=== PATIENT | male | born 1975 | race Caucasian/White ===

== ENCOUNTER 2021-01-24 13:50 | Observation (INO) ==
[2021-01-24] MEDS ORDERED: SODIUM CHLORIDE 0.9% 1,000 ML IV STA ×2 (14:20→14:56)
[2021-01-24] MEDS ORDERED: ONDANSETRON 4 MG/2 ML VIAL IV STA (14:20)
[2021-01-24 14:29] LABS: Basophils # 0.1 10*3/uL (0.0-0.2); Basophils % 0.5 % (0.0-0.8); Eosinophils % 0.2 % (0.00-10.9); Hematocrit 41.6 VOL% (42.0-52.0); Hemoglobin 13.9 GM/DL (14.0-18.0); Immature Granulocytes % 1.2 %; Immature Granulocytes Absolute 0.17 #; Lymphocytes # 1.6 10*3/uL (1.4-4.0); Lymphocytes % 10.7 % (21.2-54.2); Mean Corpuscular HGB Conc 33.4 GM/DL (32-36); Mean Corpuscular Volume 92.4 FL (87-102); Mean Platelet Volume 9.5 FL (9.6-12.0); Monocytes % 6.1 % (1.7-12.7); Neutrophils % 81.3 % (38.7-73.9); Platelet Count 211 T/CUMM (130-400); Red Cell Distribution Width 13.6 % (9.3-17.3); White Blood Count 14.8 T/CUMM (4-12)
[2021-01-24 14:45] LABS: Albumin 3.2 G/DL (3.4-5.0); Bilirubin,Total 0.8 MG/DL (0.2-1.0); Calcium 9.5 MG/DL (8.5-10.1); Osmolality,Calculated 256.6 MOS/KG (273-304); Total Protein 8.6 G/DL (5.0-7.5)
[2021-01-24 14:46] LABS: Potassium 3.9 MMOL/L (3.5-5.1)
[2021-01-24 16:15] LABS: Bilirubin,Urine Negative (Negative); Blood, Urine Small mg/dL (Negative); Glucose,Urine (UA) Negative (Negative); Hyaline Casts,Urine 11 /LPF (0-3); Ketones,Urine Negative (Negative); Mucus,Urine Occasional /LPF (Occasional); Nitrite,Urine Negative (Negative); Protein,Urine Negative; Squamous Epithelial Cell,Urine Occasional /HPF (0-10); Urine Appearance CLOUDY (Clear); Urine Color Yellow (Yellow); Urine Specific Gravity 1.008 (1.001-1.035); WBC,Urine 4 /HPF (0-6)
[2021-01-24] MEDS ORDERED: ACETAMINOPHEN 325 MG TABLET PO PRN (16:22)
[2021-01-24] MEDS ORDERED: GLUCAGON 1 MG VIAL IM PRN (16:22)
[2021-01-24] MEDS ORDERED: ONDANSETRON 4 MG/2 ML VIAL IV PRN (16:22)
[2021-01-24] MEDS ORDERED: DEXTROSE 50% 25 GM/50 ML VIAL IV PRN (16:22)
[2021-01-24] MEDS ORDERED: guaiFENesin/DM ER 600-30 MG TABLET PO PRN (16:22)
[2021-01-24] MEDS ORDERED: hydrALAZINE 20 MG/1 ML VIAL IV PRN (16:22)
[2021-01-24] MEDS: SODIUM CHLORIDE 0.9% 1,000 ML IV SCH (16:33)
[2021-01-24] MEDS ORDERED: CIPROFLOXACIN INJ 400 MG in PREMIX 1 EACH IV SCH (18:00)
[2021-01-24] MEDS: metroNIDAZOLE INJ 500 MG in PREMIX 1 EACH IV SCH (18:39)
[2021-01-24] MEDS: ENOXAPARIN 40 MG/0.4 ML SYRINGE SUBCUT SCH (21:45)
[2021-01-25] MEDS: SODIUM CHLORIDE 0.9% 1,000 ML IV SCH ×3 (04:14→17:01)
[2021-01-25] MEDS: metroNIDAZOLE INJ 500 MG in PREMIX 1 EACH IV SCH ×2 (04:15→10:38)
[2021-01-25 06:11] LABS: Calcium 8.2 MG/DL (8.5-10.1); Osmolality,Calculated 259.8 MOS/KG (273-304); Potassium 3.6 MMOL/L (3.5-5.1); Risk Ratio 2.88; Thyroid Stimulating Hormone 5.3 uIU/ml (0.358-3.74); VLDL CHOLESTEROL 10.4 MG/DL
[2021-01-25 07:23] LABS: Basophils # 0.1 10*3/uL (0.0-0.2); Basophils % 0.6 % (0.0-0.8); Eosinophils # 0.1 10*3/uL (0.0-0.87); Eosinophils % 0.9 % (0.00-10.9); Hematocrit 32.9 VOL% (42.0-52.0); Immature Granulocytes % 0.9 %; Immature Granulocytes Absolute 0.08 #; Lymphocytes # 1.5 10*3/uL (1.4-4.0); Lymphocytes % 16.8 % (21.2-54.2); Mean Corpuscular HGB Conc 33.4 GM/DL (32-36); Mean Corpuscular Volume 93.5 FL (87-102); Monocytes % 8.8 % (1.7-12.7); Platelet Count 134 T/CUMM (130-400); Red Blood Count 3.52 MC/CUMM (3.8-5.5); Red Cell Distribution Width 13.8 % (9.3-17.3)
[2021-01-25] MEDS: CIPROFLOXACIN INJ 400 MG in PREMIX 1 EACH IV SCH ×2 (08:43→21:47)
[2021-01-25] MEDS ORDERED: NICOTINE 21 MG/24 HR PATCH TRANSDERM PRN (10:02)
[2021-01-25] MEDS: NORTRIPTYLINE 25 MG CAPSULE PO SCH (21:44)
[2021-01-25] MEDS: ENOXAPARIN 40 MG/0.4 ML SYRINGE SUBCUT SCH (21:44)
[2021-01-26] MEDS: SODIUM CHLORIDE 0.9% 1,000 ML IV SCH ×4 (01:05→22:52)
[2021-01-26 06:13] LABS: Basophils # 0.1 10*3/uL (0.0-0.2); Basophils % 0.8 % (0.0-0.8); Eosinophils # 0.1 10*3/uL (0.0-0.87); Eosinophils % 1.2 % (0.00-10.9); Hemoglobin 10.8 GM/DL (14.0-18.0); Immature Granulocytes % 1.2 %; Immature Granulocytes Absolute 0.08 #; Lymphocytes # 1.9 10*3/uL (1.4-4.0); Lymphocytes % 28.4 % (21.2-54.2); Mean Corpuscular HGB Conc 33.8 GM/DL (32-36); Mean Corpuscular Volume 93.8 FL (87-102); Mean Platelet Volume 9.3 FL (9.6-12.0); Monocytes % 8.6 % (1.7-12.7); Neutrophils % 59.8 % (38.7-73.9); Platelet Count 119 T/CUMM (130-400); Red Blood Count 3.41 MC/CUMM (3.8-5.5); Red Cell Distribution Width 13.6 % (9.3-17.3); White Blood Count 6.5 T/CUMM (4-12)
[2021-01-26 06:32] LABS: Calcium 8.5 MG/DL (8.5-10.1); Osmolality,Calculated 262.4 MOS/KG (273-304); Potassium 4.1 MMOL/L (3.5-5.1)
[2021-01-26 06:36] LABS: Hypochromasia Slight; Microcytosis Slight
[2021-01-26] MEDS: LEVOTHYROXINE 25 MCG TABLET PO SCH (07:49)
[2021-01-26] MEDS: CIPROFLOXACIN INJ 400 MG in PREMIX 1 EACH IV SCH ×2 (09:19→20:53)
[2021-01-26] MEDS: TOLTERODINE LA 2 MG CAPSULE PO SCH (09:21)
[2021-01-26] MEDS: NORTRIPTYLINE 25 MG CAPSULE PO SCH (20:54)
[2021-01-26] MEDS: ENOXAPARIN 40 MG/0.4 ML SYRINGE SUBCUT SCH (20:55)
[2021-01-27] MEDS: SODIUM CHLORIDE 0.9% 1,000 ML IV SCH ×3 (03:09→22:45)
[2021-01-27] MEDS: LEVOTHYROXINE 25 MCG TABLET PO SCH (05:58)
[2021-01-27] MEDS: CIPROFLOXACIN INJ 400 MG in PREMIX 1 EACH IV SCH ×2 (08:16→21:31)
[2021-01-27] MEDS: TOLTERODINE LA 2 MG CAPSULE PO SCH (08:18)
[2021-01-27] MEDS: ENOXAPARIN 40 MG/0.4 ML SYRINGE SUBCUT SCH (21:29)
[2021-01-27] MEDS: NORTRIPTYLINE 25 MG CAPSULE PO SCH (21:29)
[2021-01-28 05:42] LABS: Basophils # 0.1 10*3/uL (0.0-0.2); Basophils % 0.7 % (0.0-0.8); Eosinophils # 0.2 10*3/uL (0.0-0.87); Eosinophils % 2.2 % (0.00-10.9); Hemoglobin 11.2 GM/DL (14.0-18.0); Immature Granulocytes % 1.8 %; Immature Granulocytes Absolute 0.12 #; Lymphocytes # 1.9 10*3/uL (1.4-4.0); Lymphocytes % 28.2 % (21.2-54.2); Mean Corpuscular HGB Conc 32.9 GM/DL (32-36); Mean Corpuscular Volume 94.7 FL (87-102); Mean Platelet Volume 9.1 FL (9.6-12.0); Monocytes % 7.3 % (1.7-12.7); Neutrophils % 59.8 % (38.7-73.9); Platelet Count 135 T/CUMM (130-400); Red Blood Count 3.59 MC/CUMM (3.8-5.5); Red Cell Distribution Width 13.4 % (9.3-17.3); White Blood Count 6.7 T/CUMM (4-12)
[2021-01-28] MEDS: LEVOTHYROXINE 25 MCG TABLET PO SCH (06:02)
[2021-01-28 06:08] LABS: Calcium 8.6 MG/DL (8.5-10.1); Osmolality,Calculated 264.2 MOS/KG (273-304); Potassium 3.8 MMOL/L (3.5-5.1)
[2021-01-28 06:47] LABS: Eosinophils 5 % (0-10); Hypochromasia Slight; Lymphocytes 19 % (20-55); Microcytosis Slight; Platelet Estimate Adequate; Segmented Neutrophils 65 % (50-85); Total Cells Counted 100
[2021-01-28] MEDS: CIPROFLOXACIN INJ 400 MG in PREMIX 1 EACH IV SCH (09:06)
[2021-01-28] MEDS: TOLTERODINE LA 2 MG CAPSULE PO SCH (09:07)
[2021-01-28 16:13] VITALS: BP 117/68
[2021-01-28] MEDS: SODIUM CHLORIDE 0.9% 1,000 ML IV SCH (18:53)
== END 2021-01-28 19:28 | disposition home or self-care (01) ==
LOC: EDBD → EDUNIT# → N.ED 13:50 → N.EDINP 13:50 → N.5E 16:54
PROVIDERS: ADMIT Internal Medicine; ATTEND Internal Medicine

== ENCOUNTER 2021-05-06 15:56 | Inpatient (IN) ==
[2021-05-06 17:14] LABS: Basophils # 0.1 10*3/uL (0.0-0.2); Basophils % 0.8 % (0.0-0.8); Eosinophils # 0.1 10*3/uL (0.0-0.87); Eosinophils % 1.3 % (0.00-10.9); Hematocrit 41.1 VOL% (42.0-52.0); Hemoglobin 13.5 GM/DL (14.0-18.0); Immature Granulocytes % 0.5 %; Immature Granulocytes Absolute 0.05 #; Lymphocytes # 2.6 10*3/uL (1.4-4.0); Lymphocytes % 25.8 % (21.2-54.2); Mean Corpuscular HGB Conc 32.8 GM/DL (32-36); Mean Corpuscular Volume 91.9 FL (87-102); Mean Platelet Volume 8.9 FL (9.6-12.0); Monocytes % 8.7 % (1.7-12.7); Neutrophils % 62.9 % (38.7-73.9); Platelet Count 190 T/CUMM (130-400); Red Blood Count 4.47 MC/CUMM (3.8-5.5); Red Cell Distribution Width 14.1 % (9.3-17.3); White Blood Count 9.9 T/CUMM (4-12)
[2021-05-06 17:19] LABS: Bacteria,Urine Moderate /HPF (Few); Bilirubin,Urine Negative (Negative); Blood, Urine Negative (Negative); Glucose,Urine (UA) Negative (Negative); Ketones,Urine Negative (Negative); Mucus,Urine Many /LPF (Occasional); Nitrite,Urine Positive (Negative); Protein,Urine 100 MG/DL; RBC,Urine 4 /HPF (0-4); Squamous Epithelial Cell,Urine Occasional /HPF (0-10); Urine Appearance CLOUDY (Clear); Urine Color Amber (Yellow); Urine Specific Gravity 1.015 (1.001-1.035)
[2021-05-06 17:37] LABS: Eosinophils 1 % (0-10); Lymphocytes 23 % (20-55); Platelet Estimate Adequate; Segmented Neutrophils 63 % (50-85); Total Cells Counted 100
[2021-05-06 17:42] LABS: Albumin 3.3 G/DL (3.4-5.0); Bilirubin,Total 0.7 MG/DL (0.2-1.0); Calcium 9.4 MG/DL (8.5-10.1); Osmolality,Calculated 262.4 MOS/KG (273-304); Potassium 3.7 MMOL/L (3.5-5.1); Total Protein 8.2 G/DL (6.4-8.2)
[2021-05-06] MEDS ORDERED: VANCOMYCIN INJ 1,250 MG in SODIUM CHLORIDE 0.9% 250 ML IV STA (17:54)
[2021-05-06] MEDS ORDERED: VANCOMYCIN INJ 1,000 MG in SODIUM CHLORIDE 0.9% 250 ML IV STA ×2 (17:59→18:04)
[2021-05-06] MEDS ORDERED: VANCOMYCIN 1,000 MG VIAL ONE (18:00)
[2021-05-06] MEDS ORDERED: ONDANSETRON 4 MG/2 ML VIAL IV PRN (19:27)
[2021-05-06] MEDS ORDERED: DOCUSATE SODIUM 100 MG CAPSULE PO PRN (19:27)
[2021-05-06] MEDS ORDERED: GLUCAGON 1 MG VIAL IM PRN (19:27)
[2021-05-06] MEDS ORDERED: ACETAMINOPHEN 325 MG TABLET PO PRN (19:27)
[2021-05-06] MEDS ORDERED: hydrALAZINE 20 MG/1 ML VIAL IV PRN (19:27)
[2021-05-06] MEDS ORDERED: DEXTROSE 50% 25 GM/50 ML VIAL IV PRN (19:27)
[2021-05-06] MEDS ORDERED: ENOXAPARIN 40 MG/0.4 ML SYRINGE SUBCUT SCH (19:30)
[2021-05-06] MEDS ORDERED: ONDANSETRON 4 MG/2 ML VIAL ONE (19:39)
[2021-05-06] MEDS ORDERED: MORPHINE 4 MG/1 ML VIAL ONE (19:39)
[2021-05-06] MEDS ORDERED: ENOXAPARIN 40 MG/0.4 ML SYRINGE ONE (19:39)
[2021-05-06] MEDS: SODIUM CHLORIDE 0.9% 1,000 ML IV SCH (19:47)
[2021-05-06] MEDS: MORPHINE 4 MG/1 ML VIAL IV PRN (19:47)
[2021-05-06] MEDS: MEROPENEM 500 MG in SODIUM CHLORIDE 0.9% 100 ML IV SCH (22:30)
[2021-05-06] MEDS: NICOTINE 21 MG/24 HR PATCH TRANSDERM PRN (22:33)
[2021-05-06] MEDS: ZALEPLON 5 MG CAPSULE PO PRN (22:33)
[2021-05-07] MEDS: MEROPENEM 500 MG in SODIUM CHLORIDE 0.9% 100 ML IV SCH ×4 (02:05→20:20)
[2021-05-07] MEDS: MORPHINE 4 MG/1 ML VIAL IV PRN ×2 (02:15→08:14)
[2021-05-07 04:35] LABS: Basophils # 0.1 10*3/uL (0.0-0.2); Basophils % 0.5 % (0.0-0.8); Eosinophils # 0.2 10*3/uL (0.0-0.87); Hematocrit 37.2 VOL% (42.0-52.0); Hemoglobin 11.8 GM/DL (14.0-18.0); Immature Granulocytes % 0.7 %; Immature Granulocytes Absolute 0.07 #; Lymphocytes # 3.1 10*3/uL (1.4-4.0); Lymphocytes % 33.1 % (21.2-54.2); Mean Corpuscular HGB Conc 31.7 GM/DL (32-36); Mean Corpuscular Volume 95.1 FL (87-102); Mean Platelet Volume 9.5 FL (9.6-12.0); Monocytes % 10.4 % (1.7-12.7); Neutrophils % 53.3 % (38.7-73.9); Platelet Count 164 T/CUMM (130-400); Red Blood Count 3.91 MC/CUMM (3.8-5.5); Red Cell Distribution Width 14.1 % (9.3-17.3); White Blood Count 9.5 T/CUMM (4-12)
[2021-05-07 04:52] LABS: Albumin 2.8 G/DL (3.4-5.0); Bilirubin,Total 0.6 MG/DL (0.2-1.0); Calcium 8.7 MG/DL (8.5-10.1); Osmolality,Calculated 269.8 MOS/KG (273-304); Potassium 3.8 MMOL/L (3.5-5.1); Risk Ratio 4.06
[2021-05-07] MEDS: SODIUM CHLORIDE 0.9% 1,000 ML IV SCH ×3 (05:12→21:28)
[2021-05-07] MEDS: VANCOMYCIN INJ 1,250 MG in SODIUM CHLORIDE 0.9% 250 ML IV SCH ×2 (06:05→17:52)
[2021-05-07] MEDS: LEVOTHYROXINE 25 MCG TABLET PO SCH (06:05)
[2021-05-07] MEDS: TOLTERODINE LA 2 MG CAPSULE PO SCH (08:14)
[2021-05-07] MEDS: NORTRIPTYLINE 25 MG CAPSULE PO SCH (08:14)
[2021-05-07] MEDS: PANTOPRAZOLE 40 MG TABLET PO SCH (08:15)
[2021-05-07] MEDS ORDERED: BUPIVACAINE MPF 0.25% 30 ML VIAL ONE (08:40)
[2021-05-07] MEDS ORDERED: DEXMEDETOMIDINE 200 MCG/2 ML VIAL ONE (09:06)
[2021-05-07] MEDS ORDERED: propofoL 200 MG/20 ML VIAL IV ONE (09:06)
[2021-05-07] MEDS: CYCLOBENZAPRINE 10 MG TABLET PO SCH ×2 (15:05→20:17)
[2021-05-07] MEDS: ZALEPLON 5 MG CAPSULE PO PRN (20:17)
[2021-05-07] MEDS: NICOTINE 21 MG/24 HR PATCH TRANSDERM PRN (21:40)
[2021-05-08] MEDS: MEROPENEM 500 MG in SODIUM CHLORIDE 0.9% 100 ML IV SCH ×4 (02:33→21:42)
[2021-05-08] MEDS: MORPHINE 4 MG/1 ML VIAL IV PRN (02:33)
[2021-05-08] MEDS: SODIUM CHLORIDE 0.9% 1,000 ML IV SCH ×2 (05:32→16:00)
[2021-05-08] MEDS: LEVOTHYROXINE 25 MCG TABLET PO SCH (05:32)
[2021-05-08] MEDS: VANCOMYCIN INJ 1,250 MG in SODIUM CHLORIDE 0.9% 250 ML IV SCH (05:32)
[2021-05-08] MEDS: PANTOPRAZOLE 40 MG TABLET PO SCH (08:46)
[2021-05-08] MEDS: CYCLOBENZAPRINE 10 MG TABLET PO SCH ×3 (08:46→21:42)
[2021-05-08] MEDS: NORTRIPTYLINE 25 MG CAPSULE PO SCH (08:46)
[2021-05-08] MEDS: TOLTERODINE LA 2 MG CAPSULE PO SCH (08:46)
[2021-05-08 09:23] LABS: Basophils # 0.1 10*3/uL (0.0-0.2); Eosinophils # 0.1 10*3/uL (0.0-0.87); Eosinophils % 2.3 % (0.00-10.9); Hematocrit 34.3 VOL% (42.0-52.0); Hemoglobin 11.2 GM/DL (14.0-18.0); Immature Granulocytes % 0.6 %; Immature Granulocytes Absolute 0.03 #; Lymphocytes # 1.7 10*3/uL (1.4-4.0); Lymphocytes % 34.9 % (21.2-54.2); Mean Corpuscular HGB Conc 32.7 GM/DL (32-36); Mean Corpuscular Volume 93.5 FL (87-102); Mean Platelet Volume 9.2 FL (9.6-12.0); Monocytes % 8.9 % (1.7-12.7); Neutrophils % 52.3 % (38.7-73.9); Platelet Count 110 T/CUMM (130-400); Red Blood Count 3.67 MC/CUMM (3.8-5.5); Red Cell Distribution Width 14.1 % (9.3-17.3); White Blood Count 4.8 T/CUMM (4-12)
[2021-05-08 09:46] LABS: Alanine Aminotransferase 12 U/L (16-61); Albumin 2.5 G/DL (3.4-5.0); Alkaline Phosphatase 104 U/L (45-117); Aspartate Amino Transferase 8 U/L (0-37); Bilirubin,Total < 0.39 MG/DL (0.2-1.0); Blood Urea Nitrogen 5 MG/DL (7-18); Calcium 8.1 MG/DL (8.5-10.1); Carbon Dioxide 25 MMOL/L (21-32); Estimated Glom Filtration Rate 210 ML/MIN; Glucose 101 MG/DL (74-106); Osmolality,Calculated 277.3 MOS/KG (273-304); Potassium 3.4 MMOL/L (3.5-5.1); Sodium 141 MMOL/L (136-145); Total Protein 6.3 G/DL (6.4-8.2)
[2021-05-08 10:55] LABS: Eosinophils 1 % (0-10); Lymphocytes 36 % (20-55); Segmented Neutrophils 55 % (50-85); Total Cells Counted 100
[2021-05-08 10:56] LABS: Platelet Estimate Adequate
[2021-05-08] MEDS: POLYETHYLENE GLYCOL POWDER 17 GM PACK PO SCH (11:24)
[2021-05-08 14:03] LABS: Bilirubin,Urine Negative (Negative); Blood, Urine Small mg/dL (Negative); Glucose,Urine (UA) Negative (Negative); Ketones,Urine Negative (Negative); Nitrite,Urine Negative (Negative); Protein,Urine Negative; Urine Appearance CLOUDY (Clear); Urine Color Yellow (Yellow)
[2021-05-08] MEDS: DOCUSATE SODIUM 100 MG CAPSULE PO SCH (21:42)
[2021-05-09] MEDS: SODIUM CHLORIDE 0.9% 1,000 ML IV SCH ×3 (00:02→20:28)
[2021-05-09] MEDS: MEROPENEM 500 MG in SODIUM CHLORIDE 0.9% 100 ML IV SCH ×4 (01:11→20:23)
[2021-05-09 05:26] LABS: Basophils % 0.7 % (0.0-0.8); Eosinophils # 0.1 10*3/uL (0.0-0.87); Eosinophils % 2.2 % (0.00-10.9); Hematocrit 35.4 VOL% (42.0-52.0); Hemoglobin 11.4 GM/DL (14.0-18.0); Immature Granulocytes % 0.7 %; Immature Granulocytes Absolute 0.04 #; Lymphocytes % 34.2 % (21.2-54.2); Mean Corpuscular HGB Conc 32.2 GM/DL (32-36); Mean Corpuscular Volume 95.2 FL (87-102); Neutrophils % 53.2 % (38.7-73.9); Platelet Count 112 T/CUMM (130-400); Red Blood Count 3.72 MC/CUMM (3.8-5.5); White Blood Count 5.9 T/CUMM (4-12)
[2021-05-09] MEDS: LEVOTHYROXINE 25 MCG TABLET PO SCH (05:41)
[2021-05-09 06:01] LABS: Eosinophils 5 % (0-10); Lymphocytes 23 % (20-55); Platelet Estimate Normal; Segmented Neutrophils 66 % (50-85); Total Cells Counted 100
[2021-05-09] MEDS: DOCUSATE SODIUM 100 MG CAPSULE PO SCH ×2 (09:17→20:23)
[2021-05-09] MEDS: PANTOPRAZOLE 40 MG TABLET PO SCH (09:17)
[2021-05-09] MEDS: NORTRIPTYLINE 25 MG CAPSULE PO SCH (09:17)
[2021-05-09] MEDS: POLYETHYLENE GLYCOL POWDER 17 GM PACK PO SCH (09:17)
[2021-05-09] MEDS: TOLTERODINE LA 2 MG CAPSULE PO SCH (09:17)
[2021-05-09] MEDS: CYCLOBENZAPRINE 10 MG TABLET PO SCH ×3 (09:17→20:23)
[2021-05-09] MEDS: MORPHINE 4 MG/1 ML VIAL IV PRN ×2 (16:01→20:24)
[2021-05-10] MEDS: MENTHOL/ZINC OXIDE OINT 71 GM JAR TOP SCH ×4 (02:17→21:17)
[2021-05-10] MEDS: MEROPENEM 500 MG in SODIUM CHLORIDE 0.9% 100 ML IV SCH ×5 (02:17→21:18)
[2021-05-10] MEDS: LEVOTHYROXINE 25 MCG TABLET PO SCH (06:01)
[2021-05-10] MEDS: SODIUM CHLORIDE 0.9% 1,000 ML IV SCH ×3 (06:21→11:10)
[2021-05-10] MEDS: MORPHINE 4 MG/1 ML VIAL IV PRN ×2 (06:31→21:27)
[2021-05-10 06:37] LABS: Folate 8.27 NG/ML (5.38-24.0); HIV Antigen/Antibody Result Nonreactive (Nonreactive); Vitamin B12 415 PG/ML (211-911)
[2021-05-10] MEDS: TOLTERODINE LA 2 MG CAPSULE PO SCH ×2 (08:32→08:40)
[2021-05-10] MEDS: POLYETHYLENE GLYCOL POWDER 17 GM PACK PO SCH ×2 (08:32→08:40)
[2021-05-10] MEDS: DOCUSATE SODIUM 100 MG CAPSULE PO SCH ×3 (08:33→21:17)
[2021-05-10] MEDS: CYCLOBENZAPRINE 10 MG TABLET PO SCH ×4 (08:33→21:17)
[2021-05-10] MEDS: NORTRIPTYLINE 25 MG CAPSULE PO SCH ×2 (08:34→08:40)
[2021-05-10] MEDS: PANTOPRAZOLE 40 MG TABLET PO SCH ×2 (08:34→09:27)
[2021-05-11] MEDS: MEROPENEM 500 MG in SODIUM CHLORIDE 0.9% 100 ML IV SCH ×4 (03:33→20:08)
[2021-05-11] MEDS: MORPHINE 4 MG/1 ML VIAL IV PRN ×4 (03:38→20:08)
[2021-05-11] MEDS: LEVOTHYROXINE 25 MCG TABLET PO SCH (05:59)
[2021-05-11] MEDS: NORTRIPTYLINE 25 MG CAPSULE PO SCH (08:27)
[2021-05-11] MEDS: DOCUSATE SODIUM 100 MG CAPSULE PO SCH ×2 (08:27→20:08)
[2021-05-11] MEDS: CYCLOBENZAPRINE 10 MG TABLET PO SCH ×3 (08:27→20:08)
[2021-05-11] MEDS: POLYETHYLENE GLYCOL POWDER 17 GM PACK PO SCH (08:27)
[2021-05-11] MEDS: PANTOPRAZOLE 40 MG TABLET PO SCH (08:27)
[2021-05-11] MEDS: TOLTERODINE LA 2 MG CAPSULE PO SCH (08:33)
[2021-05-11] MEDS ORDERED: ERGOCALCIFEROL 50,000 UNIT CAPSULE PO SCH (09:00)
[2021-05-11] MEDS: NICOTINE 21 MG/24 HR PATCH TRANSDERM PRN (12:16)
[2021-05-11] MEDS: MENTHOL/ZINC OXIDE OINT 71 GM JAR TOP SCH ×2 (13:03→22:08)
[2021-05-11] MEDS: ZALEPLON 5 MG CAPSULE PO PRN (22:08)
[2021-05-12] MEDS: MORPHINE 4 MG/1 ML VIAL IV PRN ×2 (04:37→09:56)
[2021-05-12] MEDS: MEROPENEM 500 MG in SODIUM CHLORIDE 0.9% 100 ML IV SCH ×2 (04:37→09:03)
[2021-05-12] MEDS: LEVOTHYROXINE 25 MCG TABLET PO SCH ×2 (04:39→05:33)
[2021-05-12] MEDS: NICOTINE 21 MG/24 HR PATCH TRANSDERM PRN (09:55)
[2021-05-12] MEDS: POLYETHYLENE GLYCOL POWDER 17 GM PACK PO SCH (09:55)
[2021-05-12] MEDS: NORTRIPTYLINE 25 MG CAPSULE PO SCH (09:56)
[2021-05-12] MEDS: DOCUSATE SODIUM 100 MG CAPSULE PO SCH ×2 (09:56→20:49)
[2021-05-12] MEDS: CYCLOBENZAPRINE 10 MG TABLET PO SCH ×3 (09:56→20:49)
[2021-05-12] MEDS: PANTOPRAZOLE 40 MG TABLET PO SCH (09:56)
[2021-05-12] MEDS: MENTHOL/ZINC OXIDE OINT 71 GM JAR TOP SCH ×2 (09:57→20:49)
[2021-05-12] MEDS: TOLTERODINE LA 2 MG CAPSULE PO SCH (10:08)
[2021-05-12] MEDS: ZALEPLON 5 MG CAPSULE PO PRN (20:51)
[2021-05-13] MEDS: LEVOTHYROXINE 25 MCG TABLET PO SCH (06:30)
[2021-05-13] MEDS: PANTOPRAZOLE 40 MG TABLET PO SCH (09:52)
[2021-05-13] MEDS: DOCUSATE SODIUM 100 MG CAPSULE PO SCH (09:52)
[2021-05-13] MEDS: NORTRIPTYLINE 25 MG CAPSULE PO SCH (09:52)
[2021-05-13] MEDS: CYCLOBENZAPRINE 10 MG TABLET PO SCH ×2 (09:52→16:01)
[2021-05-13] MEDS: MENTHOL/ZINC OXIDE OINT 71 GM JAR TOP SCH (09:52)
[2021-05-13] MEDS: POLYETHYLENE GLYCOL POWDER 17 GM PACK PO SCH (09:52)
[2021-05-13] MEDS: TOLTERODINE LA 2 MG CAPSULE PO SCH (09:54)
[2021-05-13] MEDS ORDERED: TUBERCULIN SKIN TEST 0.1 ML SYRINGE INTRADERM ONE (10:00)
[2021-05-13 16:15] VITALS: BP 138/69
[2021-05-17 09:46] LABS: Pyridoxal 5-Phosphate (PLP), P < 4.0
== END 2021-05-13 17:31 | DRG 264 ==
LOC: EDUNIT# → EDBD → N.ED 15:56 → SUATTDRO 19:26 → N.EDINP 19:26 → N.5E 19:59
PROVIDERS: ADMIT Internal Medicine; ATTEND Hospitalist

== ENCOUNTER 2021-05-20 19:23 | Inpatient (IN) ==
[2021-05-20] MEDS ORDERED: ONDANSETRON 4 MG/2 ML VIAL IV ONE (20:25)
[2021-05-20] MEDS ORDERED: MORPHINE 4 MG/1 ML VIAL IV STA (20:25)
[2021-05-20] MEDS ORDERED: ONDANSETRON 4 MG/2 ML VIAL ONE (20:26)
[2021-05-20] MEDS ORDERED: MORPHINE 4 MG/1 ML VIAL ONE (20:27)
[2021-05-20] MEDS ORDERED: LIDOCAINE 2% TOP JELLY 20 ML VIAL INTRAURETH ONE ×2 (22:50→22:57)
[2021-05-20] MEDS ORDERED: LEVOFLOXACIN 500 MG TABLET PO STA (22:50)
[2021-05-20] MEDS ORDERED: LEVOFLOXACIN 500 MG TABLET ONE (22:58)
[2021-05-21] MEDS ORDERED: ACETAMINOPHEN 500 MG TABLET ONE (00:18)
[2021-05-21 01:10] LABS: Bilirubin,Urine Negative (Negative); Blood, Urine Large mg/dL (Negative); Glucose,Urine (UA) Negative (Negative); Ketones,Urine Negative (Negative); Mucus,Urine Occasional /LPF (Occasional); Nitrite,Urine Positive (Negative); Protein,Urine 100 MG/DL; RBC,Urine 2287 /HPF (0-4); Squamous Epithelial Cell,Urine Occasional /HPF (0-10); Urine Appearance CLOUDY (Clear); Urine Color Red (Yellow); Urine Specific Gravity 1.031 (1.001-1.035)
[2021-05-21 01:14] LABS: Basophils % 0.5 % (0.0-0.8); Eosinophils # 0.1 10*3/uL (0.0-0.87); Eosinophils % 0.6 % (0.00-10.9); Hematocrit 46.1 VOL% (42.0-52.0); Hemoglobin 14.5 GM/DL (14.0-18.0); Immature Granulocytes % 0.6 %; Immature Granulocytes Absolute 0.05 #; Lymphocytes # 0.9 10*3/uL (1.4-4.0); Lymphocytes % 10.3 % (21.2-54.2); Mean Corpuscular HGB Conc 31.5 GM/DL (32-36); Mean Corpuscular Volume 95.1 FL (87-102); Mean Platelet Volume 9.4 FL (9.6-12.0); Monocytes % 0.6 % (1.7-12.7); Neutrophils % 87.4 % (38.7-73.9); Platelet Count 172 T/CUMM (130-400); Red Blood Count 4.85 MC/CUMM (3.8-5.5); Red Cell Distribution Width 14.2 % (9.3-17.3); White Blood Count 8.6 T/CUMM (4-12)
[2021-05-21 01:33] LABS: Albumin 3.6 G/DL (3.4-5.0); Bilirubin,Total 0.6 MG/DL (0.2-1.0); Calcium 9.4 MG/DL (8.5-10.1); Osmolality,Calculated 268.1 MOS/KG (273-304); Potassium 4.5 MMOL/L (3.5-5.1); Total Protein 8.8 G/DL (6.4-8.2)
[2021-05-21] MEDS ORDERED: SODIUM CHLORIDE 0.9% 1,000 ML IV STA ×2 (01:40→01:41)
[2021-05-21] MEDS ORDERED: SODIUM PHOSPHATE ENEMA 133 ML BOTTLE RECTAL STA (04:35)
[2021-05-21] MEDS ORDERED: SODIUM CHLORIDE 0.9% 1,000 ML IV SCH (05:00)
[2021-05-21] MEDS: ENOXAPARIN 40 MG/0.4 ML SYRINGE SUBCUT SCH (09:19)
[2021-05-21] MEDS: PANTOPRAZOLE 40 MG TABLET PO SCH (09:19)
[2021-05-21] MEDS: NICOTINE 21 MG/24 HR PATCH TRANSDERM SCH (13:13)
[2021-05-21] MEDS: CYCLOBENZAPRINE 10 MG TABLET PO SCH ×2 (14:50→20:47)
[2021-05-21] MEDS: POLYETHYLENE GLYCOL POWDER 17 GM PACK PO SCH (20:47)
[2021-05-21] MEDS: DOCUSATE SODIUM 100 MG CAPSULE PO SCH (20:48)
[2021-05-21] MEDS ORDERED: LEVOFLOXACIN 750 MG TABLET PO SCH (22:00)
[2021-05-22] MEDS: LEVOTHYROXINE 25 MCG TABLET PO SCH (06:39)
[2021-05-22] MEDS: DOCUSATE SODIUM 100 MG CAPSULE PO SCH ×2 (10:39→21:46)
[2021-05-22] MEDS: PANTOPRAZOLE 40 MG TABLET PO SCH (10:39)
[2021-05-22] MEDS: POLYETHYLENE GLYCOL POWDER 17 GM PACK PO SCH ×2 (10:40→21:46)
[2021-05-22] MEDS: NORTRIPTYLINE 25 MG CAPSULE PO SCH (10:40)
[2021-05-22] MEDS: CYCLOBENZAPRINE 10 MG TABLET PO SCH ×3 (10:40→21:46)
[2021-05-22] MEDS: NICOTINE 21 MG/24 HR PATCH TRANSDERM SCH (10:41)
[2021-05-22] MEDS: ENOXAPARIN 40 MG/0.4 ML SYRINGE SUBCUT SCH (10:44)
[2021-05-22] MEDS: LINACLOTIDE 145 MCG CAPSULE PO SCH (10:45)
[2021-05-22] MEDS: MEROPENEM 500 MG in SODIUM CHLORIDE 0.9% 100 ML IV SCH ×3 (10:51→21:42)
[2021-05-22] MEDS: MORPHINE 4 MG/1 ML VIAL IV PRN (18:46)
[2021-05-23] MEDS: MORPHINE 4 MG/1 ML VIAL IV PRN (00:44)
[2021-05-23] MEDS: MEROPENEM 500 MG in SODIUM CHLORIDE 0.9% 100 ML IV SCH ×4 (02:30→21:52)
[2021-05-23 04:55] LABS: Basophils # 0.1 10*3/uL (0.0-0.2); Basophils % 0.8 % (0.0-0.8); Eosinophils # 0.2 10*3/uL (0.0-0.87); Eosinophils % 2.4 % (0.00-10.9); Hemoglobin 10.7 GM/DL (14.0-18.0); Immature Granulocytes % 1.6 %; Lymphocytes # 1.5 10*3/uL (1.4-4.0); Lymphocytes % 23.4 % (21.2-54.2); Mean Corpuscular HGB Conc 32.4 GM/DL (32-36); Mean Corpuscular Volume 93.5 FL (87-102); Monocytes % 18.1 % (1.7-12.7); Neutrophils % 53.7 % (38.7-73.9); Platelet Count 102 T/CUMM (130-400); Red Blood Count 3.53 MC/CUMM (3.8-5.5); Red Cell Distribution Width 14.3 % (9.3-17.3); White Blood Count 6.2 T/CUMM (4-12)
[2021-05-23 05:11] LABS: Calcium 8.4 MG/DL (8.5-10.1); Osmolality,Calculated 271.7 MOS/KG (273-304); Potassium 3.7 MMOL/L (3.5-5.1)
[2021-05-23 05:31] LABS: Eosinophils 1 % (0-10); Lymphocytes 34 % (20-55); Segmented Neutrophils 58 % (50-85); Total Cells Counted 100
[2021-05-23 05:32] LABS: Hypochromasia 1+; Microcytosis 1+; Platelet Estimate Decreased
[2021-05-23] MEDS: MORPHINE 2 MG/1 ML SYRINGE IV PRN ×4 (05:59→20:02)
[2021-05-23] MEDS: LEVOTHYROXINE 25 MCG TABLET PO SCH (05:59)
[2021-05-23] MEDS: NICOTINE 21 MG/24 HR PATCH TRANSDERM SCH (09:12)
[2021-05-23] MEDS: DOCUSATE SODIUM 100 MG CAPSULE PO SCH ×2 (09:12→20:03)
[2021-05-23] MEDS: PANTOPRAZOLE 40 MG TABLET PO SCH (09:12)
[2021-05-23] MEDS: ENOXAPARIN 40 MG/0.4 ML SYRINGE SUBCUT SCH (09:12)
[2021-05-23] MEDS: NORTRIPTYLINE 25 MG CAPSULE PO SCH (09:13)
[2021-05-23] MEDS: POLYETHYLENE GLYCOL POWDER 17 GM PACK PO SCH ×2 (09:13→20:03)
[2021-05-23] MEDS: LINACLOTIDE 145 MCG CAPSULE PO SCH (09:13)
[2021-05-23] MEDS: CYCLOBENZAPRINE 10 MG TABLET PO SCH ×3 (09:13→20:03)
[2021-05-24] MEDS: MORPHINE 2 MG/1 ML SYRINGE IV PRN ×5 (01:13→21:37)
[2021-05-24] MEDS: MEROPENEM 500 MG in SODIUM CHLORIDE 0.9% 100 ML IV SCH ×4 (03:27→21:19)
[2021-05-24 04:41] LABS: Basophils % 0.7 % (0.0-0.8); Eosinophils # 0.2 10*3/uL (0.0-0.87); Eosinophils % 3.2 % (0.00-10.9); Hematocrit 33.3 VOL% (42.0-52.0); Hemoglobin 10.8 GM/DL (14.0-18.0); Immature Granulocytes % 1.7 %; Immature Granulocytes Absolute 0.09 #; Lymphocytes # 1.4 10*3/uL (1.4-4.0); Mean Corpuscular HGB Conc 32.4 GM/DL (32-36); Mean Platelet Volume 9.4 FL (9.6-12.0); Monocytes % 14.8 % (1.7-12.7); Neutrophils % 52.6 % (38.7-73.9); Platelet Count 119 T/CUMM (130-400); Red Blood Count 3.62 MC/CUMM (3.8-5.5); Red Cell Distribution Width 14.2 % (9.3-17.3); White Blood Count 5.3 T/CUMM (4-12)
[2021-05-24 05:07] LABS: Eosinophils 4 % (0-10); Hypochromasia Slight; Lymphocytes 28 % (20-55); Microcytosis Slight; Platelet Estimate Decreased; Segmented Neutrophils 58 % (50-85); Total Cells Counted 100
[2021-05-24 05:11] LABS: Calcium 8.3 MG/DL (8.5-10.1); Osmolality,Calculated 269.8 MOS/KG (273-304); Potassium 3.8 MMOL/L (3.5-5.1)
[2021-05-24] MEDS: LEVOTHYROXINE 25 MCG TABLET PO SCH (06:30)
[2021-05-24] MEDS: POLYETHYLENE GLYCOL POWDER 17 GM PACK PO SCH ×2 (08:42→21:18)
[2021-05-24] MEDS: NORTRIPTYLINE 25 MG CAPSULE PO SCH (08:42)
[2021-05-24] MEDS: CYCLOBENZAPRINE 10 MG TABLET PO SCH ×3 (08:42→21:18)
[2021-05-24] MEDS: DOCUSATE SODIUM 100 MG CAPSULE PO SCH ×2 (08:42→21:18)
[2021-05-24] MEDS: PANTOPRAZOLE 40 MG TABLET PO SCH (08:42)
[2021-05-24] MEDS: ENOXAPARIN 40 MG/0.4 ML SYRINGE SUBCUT SCH (08:42)
[2021-05-24] MEDS: NICOTINE 21 MG/24 HR PATCH TRANSDERM SCH (08:42)
[2021-05-24] MEDS: LINACLOTIDE 145 MCG CAPSULE PO SCH (08:43)
[2021-05-25] MEDS: MEROPENEM 500 MG in SODIUM CHLORIDE 0.9% 100 ML IV SCH (03:39)
[2021-05-25 05:34] LABS: Basophils % 0.7 % (0.0-0.8); Eosinophils # 0.2 10*3/uL (0.0-0.87); Eosinophils % 2.7 % (0.00-10.9); Hemoglobin 11.4 GM/DL (14.0-18.0); Immature Granulocytes % 1.4 %; Immature Granulocytes Absolute 0.08 #; Lymphocytes # 1.6 10*3/uL (1.4-4.0); Lymphocytes % 27.2 % (21.2-54.2); Mean Corpuscular HGB Conc 32.6 GM/DL (32-36); Mean Corpuscular Volume 91.9 FL (87-102); Mean Platelet Volume 9.2 FL (9.6-12.0); Platelet Count 137 T/CUMM (130-400); Red Blood Count 3.81 MC/CUMM (3.8-5.5); Red Cell Distribution Width 14.3 % (9.3-17.3); White Blood Count 5.9 T/CUMM (4-12)
[2021-05-25 05:59] LABS: Eosinophils 3 % (0-10); Lymphocytes 24 % (20-55); Segmented Neutrophils 59 % (50-85); Total Cells Counted 100
[2021-05-25 06:00] LABS: Hypochromasia 1+; Microcytosis 1+; Platelet Estimate Normal
[2021-05-25 06:06] LABS: Osmolality,Calculated 271.7 MOS/KG (273-304); Potassium 4.2 MMOL/L (3.5-5.1)
[2021-05-25] MEDS: LEVOTHYROXINE 25 MCG TABLET PO SCH (06:37)
[2021-05-25] MEDS: PANTOPRAZOLE 40 MG TABLET PO SCH (09:50)
[2021-05-25] MEDS: CYCLOBENZAPRINE 10 MG TABLET PO SCH ×2 (09:50→14:30)
[2021-05-25] MEDS: ENOXAPARIN 40 MG/0.4 ML SYRINGE SUBCUT SCH (09:50)
[2021-05-25] MEDS: DOCUSATE SODIUM 100 MG CAPSULE PO SCH (09:50)
[2021-05-25] MEDS: NORTRIPTYLINE 25 MG CAPSULE PO SCH (09:50)
[2021-05-25] MEDS: POLYETHYLENE GLYCOL POWDER 17 GM PACK PO SCH (09:51)
[2021-05-25] MEDS: LINACLOTIDE 145 MCG CAPSULE PO SCH (09:51)
[2021-05-25] MEDS: NICOTINE 21 MG/24 HR PATCH TRANSDERM SCH (09:53)
[2021-05-25] MEDS: MORPHINE 2 MG/1 ML SYRINGE IV PRN ×2 (09:54→14:31)
[2021-05-25] MEDS ORDERED: ERTAPENEM 1,000 MG in SODIUM CHLORIDE 0.9% 100 ML IV ONE (11:00)
[2021-05-25 11:29] VITALS: BP 130/82
== END 2021-05-25 15:30 | disposition home health service (06) | DRG 698 ==
LOC: EDBD → EDUNIT# → N.ED 19:23 → N.EDINP 19:23 → N.5E 05-21 04:54
PROVIDERS: ADMIT Hospitalist; ATTEND Hospitalist

== ENCOUNTER 2021-07-20 16:23 | Inpatient (IN) ==
[2021-07-20 18:02] LABS: Basophils # 0.1 10*3/uL (0.0-0.2); Basophils % 0.8 % (0.0-0.8); Eosinophils # 0.2 10*3/uL (0.0-0.87); Eosinophils % 2.1 % (0.00-10.9); Hematocrit 40.3 VOL% (42.0-52.0); Immature Granulocytes % 0.4 %; Immature Granulocytes Absolute 0.03 #; Lymphocytes # 2.2 10*3/uL (1.4-4.0); Lymphocytes % 27.6 % (21.2-54.2); Mean Corpuscular HGB Conc 32.3 GM/DL (32-36); Mean Corpuscular Volume 91.6 FL (87-102); Neutrophils % 60.1 % (38.7-73.9); Platelet Count 171 T/CUMM (130-400); Red Cell Distribution Width 13.9 % (9.3-17.3); White Blood Count 7.8 T/CUMM (4-12)
[2021-07-20 18:25] LABS: Bilirubin,Total 0.8 MG/DL (0.20-1.00); Calcium 8.8 MG/DL (8.5-10.1); Osmolality,Calculated 268.8 MOS/KG (273-304); Potassium 3.7 MMOL/L (3.5-5.1); Total Protein 8.1 G/DL (6.4-8.2)
[2021-07-20 18:36] LABS: Bacteria,Urine Occasional /HPF (Few); Bilirubin,Urine Negative (Negative); Blood, Urine Small mg/dL (Negative); Glucose,Urine (UA) Negative (Negative); Ketones,Urine Negative (Negative); Nitrite,Urine Positive (Negative); Protein,Urine Negative; Squamous Epithelial Cell,Urine Occasional /HPF (0-10); Urine Appearance CLOUDY (Clear); Urine Color Yellow (Yellow); Urine Specific Gravity 1.004 (1.001-1.035)
[2021-07-20 18:38] LABS: Barbiturates Screen,Urine Negative (Negative); Benzodiazepines Screen,Urine Negative (Negative); Cannabinoid Screen,Urine Positive (Negative); Opiate Screen,Urine Negative (Negative); Phencyclidine Screen,Urine Negative (Negative)
[2021-07-20] MEDS ORDERED: LEVOFLOXACIN INJ 750 MG/150 ML PREMIX IV STA (20:23)
[2021-07-20] MEDS ORDERED: GLUCAGON 1 MG VIAL IM PRN (20:31)
[2021-07-20] MEDS ORDERED: traZODone 50 MG TABLET PO PRN (20:31)
[2021-07-20] MEDS ORDERED: ONDANSETRON 4 MG/2 ML VIAL IV PRN (20:31)
[2021-07-20] MEDS ORDERED: DEXTROSE 50% 25 GM/50 ML VIAL IV PRN (20:31)
[2021-07-20] MEDS ORDERED: NICOTINE 21 MG/24 HR PATCH TRANSDERM PRN (20:36)
[2021-07-20] MEDS ORDERED: ACETAMINOPHEN 325 MG TABLET PO PRN (20:36)
[2021-07-20] MEDS: DOCUSATE SODIUM 100 MG CAPSULE PO SCH (21:56)
[2021-07-20] MEDS: CYCLOBENZAPRINE 10 MG TABLET PO SCH (21:56)
[2021-07-20] MEDS: ENOXAPARIN 40 MG/0.4 ML SYRINGE SUBCUT SCH (21:57)
[2021-07-20] MEDS ORDERED: LACTULOSE 20 GM/30 ML UDCUP PO PRN (23:13)
[2021-07-21] MEDS: MORPHINE 2 MG/1 ML SYRINGE IV PRN ×4 (03:16→23:41)
[2021-07-21 06:27] LABS: Basophils # 0.1 10*3/uL (0.0-0.2); Basophils % 0.8 % (0.0-0.8); Eosinophils # 0.2 10*3/uL (0.0-0.87); Eosinophils % 1.7 % (0.00-10.9); Hemoglobin 12.5 GM/DL (14.0-18.0); Immature Granulocytes % 0.6 %; Immature Granulocytes Absolute 0.05 #; Lymphocytes # 2.6 10*3/uL (1.4-4.0); Lymphocytes % 29.2 % (21.2-54.2); Mean Corpuscular HGB Conc 32.1 GM/DL (32-36); Mean Corpuscular Volume 92.6 FL (87-102); Mean Platelet Volume 9.9 FL (9.6-12.0); Monocytes % 10.2 % (1.7-12.7); Neutrophils % 57.5 % (38.7-73.9); Platelet Count 166 T/CUMM (130-400); Red Blood Count 4.21 MC/CUMM (3.8-5.5); Red Cell Distribution Width 13.7 % (9.3-17.3); White Blood Count 8.7 T/CUMM (4-12)
[2021-07-21] MEDS ORDERED: LEVOTHYROXINE 25 MCG TABLET PO SCH (06:30)
[2021-07-21 07:04] LABS: Calcium 9.1 MG/DL (8.5-10.1); Osmolality,Calculated 266.1 MOS/KG (273-304); Potassium 3.4 MMOL/L (3.5-5.1)
[2021-07-21] MEDS ORDERED: POTASSIUM CHLORIDE 20 MEQ TABLET PO PRN (07:18)
[2021-07-21] MEDS: CYCLOBENZAPRINE 10 MG TABLET PO SCH (08:42)
[2021-07-21] MEDS: DOCUSATE SODIUM 100 MG CAPSULE PO SCH (08:42)
[2021-07-21] MEDS ORDERED: LINACLOTIDE 145 MCG CAPSULE PO SCH (09:00)
[2021-07-21] MEDS ORDERED: TOLTERODINE LA 2 MG CAPSULE PO SCH (09:00)
[2021-07-21] MEDS ORDERED: POLYETHYLENE GLYCOL POWDER 17 GM PACK PO SCH (09:00)
[2021-07-21] MEDS: COLLAGENASE OINT 30 GM TUBE TOP SCH (14:40)
[2021-07-21] MEDS: MENTHOL/ZINC OXIDE OINT 71 GM JAR TOP SCH ×2 (14:40→20:29)
[2021-07-21] MEDS ORDERED: LIDOCAINE 2% TOP JELLY 20 ML VIAL INTRAURETH ONE (18:08)
[2021-07-21] MEDS: POLYETHYLENE GLYCOL POWDER 17 GM PACK PO SCH (20:26)
[2021-07-21] MEDS: ENOXAPARIN 40 MG/0.4 ML SYRINGE SUBCUT SCH (20:26)
[2021-07-21] MEDS ORDERED: LEVOFLOXACIN INJ 750 MG/150 ML PREMIX IV SCH (21:00)
[2021-07-21] MEDS ORDERED: NICOTINE 21 MG/24 HR PATCH TRANSDERM ONE (23:22)
[2021-07-22] MEDS: MORPHINE 2 MG/1 ML SYRINGE IV PRN ×5 (04:23→22:05)
[2021-07-22 05:52] LABS: Calcium 8.7 MG/DL (8.5-10.1); Osmolality,Calculated 267.1 MOS/KG (273-304); Potassium 3.8 MMOL/L (3.5-5.1)
[2021-07-22] MEDS: POLYETHYLENE GLYCOL POWDER 17 GM PACK PO SCH ×2 (09:03→20:41)
[2021-07-22] MEDS: COLLAGENASE OINT 30 GM TUBE TOP SCH (09:04)
[2021-07-22] MEDS: MENTHOL/ZINC OXIDE OINT 71 GM JAR TOP SCH ×2 (09:04→22:14)
[2021-07-22] MEDS: cefTRIAXone 1,000 MG in SODIUM CHLORIDE 0.9% 100 ML IV SCH (15:14)
[2021-07-22] MEDS: OXYBUTYNIN XL 15 MG TABLET PO SCH (20:41)
[2021-07-22] MEDS: ENOXAPARIN 40 MG/0.4 ML SYRINGE SUBCUT SCH (20:41)
[2021-07-22] MEDS ORDERED: MELATONIN 3 MG TABLET PO SCH (21:00)
[2021-07-22] MEDS: NICOTINE 21 MG/24 HR PATCH TRANSDERM PRN (22:09)
[2021-07-23] MEDS: MORPHINE 2 MG/1 ML SYRINGE IV PRN ×5 (02:35→20:33)
[2021-07-23] MEDS: POLYETHYLENE GLYCOL POWDER 17 GM PACK PO SCH ×2 (09:34→20:42)
[2021-07-23] MEDS: MENTHOL/ZINC OXIDE OINT 71 GM JAR TOP SCH ×2 (09:34→21:19)
[2021-07-23] MEDS: cefTRIAXone 1,000 MG in SODIUM CHLORIDE 0.9% 100 ML IV SCH (10:20)
[2021-07-23] MEDS: COLLAGENASE OINT 30 GM TUBE TOP SCH (16:05)
[2021-07-23] MEDS: LACTULOSE 20 GM/30 ML UDCUP PO SCH (20:28)
[2021-07-23] MEDS: OXYBUTYNIN XL 15 MG TABLET PO SCH (20:28)
[2021-07-23] MEDS: ENOXAPARIN 40 MG/0.4 ML SYRINGE SUBCUT SCH (20:28)
[2021-07-23] MEDS ORDERED: traZODone 50 MG TABLET PO SCH (21:00)
[2021-07-23] MEDS: NICOTINE 21 MG/24 HR PATCH TRANSDERM PRN (21:17)
[2021-07-24] MEDS: MORPHINE 2 MG/1 ML SYRINGE IV PRN ×5 (00:49→20:47)
[2021-07-24] MEDS: LACTULOSE 20 GM/30 ML UDCUP PO SCH ×2 (10:14→20:51)
[2021-07-24] MEDS: POLYETHYLENE GLYCOL POWDER 17 GM PACK PO SCH ×2 (10:14→20:51)
[2021-07-24] MEDS: cefTRIAXone 1,000 MG in SODIUM CHLORIDE 0.9% 100 ML IV SCH (10:14)
[2021-07-24] MEDS: COLLAGENASE OINT 30 GM TUBE TOP SCH (10:15)
[2021-07-24] MEDS: MENTHOL/ZINC OXIDE OINT 71 GM JAR TOP SCH ×2 (10:15→20:52)
[2021-07-24] MEDS: ENOXAPARIN 40 MG/0.4 ML SYRINGE SUBCUT SCH (20:51)
[2021-07-24] MEDS: ZALEPLON 5 MG CAPSULE PO SCH (20:51)
[2021-07-24] MEDS: OXYBUTYNIN XL 15 MG TABLET PO SCH (20:51)
[2021-07-24] MEDS: NICOTINE 21 MG/24 HR PATCH TRANSDERM PRN (21:24)
[2021-07-25] MEDS: MORPHINE 2 MG/1 ML SYRINGE IV PRN ×6 (01:18→23:31)
[2021-07-25] MEDS: cefTRIAXone 1,000 MG in SODIUM CHLORIDE 0.9% 100 ML IV SCH (09:07)
[2021-07-25] MEDS: LACTULOSE 20 GM/30 ML UDCUP PO SCH ×2 (09:09→21:27)
[2021-07-25] MEDS: POLYETHYLENE GLYCOL POWDER 17 GM PACK PO SCH ×2 (09:11→21:28)
[2021-07-25] MEDS: MENTHOL/ZINC OXIDE OINT 71 GM JAR TOP SCH ×2 (09:50→21:28)
[2021-07-25] MEDS: COLLAGENASE OINT 30 GM TUBE TOP SCH (17:35)
[2021-07-25] MEDS: ZALEPLON 5 MG CAPSULE PO SCH (21:27)
[2021-07-25] MEDS: OXYBUTYNIN XL 15 MG TABLET PO SCH (21:27)
[2021-07-25] MEDS: ENOXAPARIN 40 MG/0.4 ML SYRINGE SUBCUT SCH (21:28)
[2021-07-25] MEDS: NICOTINE 21 MG/24 HR PATCH TRANSDERM PRN (21:37)
[2021-07-26] MEDS: MORPHINE 2 MG/1 ML SYRINGE IV PRN ×3 (03:41→12:57)
[2021-07-26 05:36] LABS: Basophils # 0.1 10*3/uL (0.0-0.2); Basophils % 0.9 % (0.0-0.8); Eosinophils # 0.2 10*3/uL (0.0-0.87); Eosinophils % 2.5 % (0.00-10.9); Hemoglobin 12.4 GM/DL (14.0-18.0); Immature Granulocytes % 0.9 %; Immature Granulocytes Absolute 0.07 #; Lymphocytes # 2.6 10*3/uL (1.4-4.0); Lymphocytes % 33.9 % (21.2-54.2); Mean Corpuscular HGB Conc 31.8 GM/DL (32-36); Mean Corpuscular Volume 93.1 FL (87-102); Mean Platelet Volume 10.1 FL (9.6-12.0); Monocytes % 10.7 % (1.7-12.7); Neutrophils % 51.1 % (38.7-73.9); Platelet Count 200 T/CUMM (130-400); Red Blood Count 4.19 MC/CUMM (3.8-5.5); Red Cell Distribution Width 13.8 % (9.3-17.3); White Blood Count 7.6 T/CUMM (4-12)
[2021-07-26 05:59] LABS: Atypical Lymphocytes Few; Eosinophils 5 % (0-10); Hypochromasia 1+; Lymphocytes 25 % (20-55); Microcytosis 1+; Segmented Neutrophils 57 % (50-85); Total Cells Counted 100
[2021-07-26 06:00] LABS: Platelet Estimate Normal
[2021-07-26 06:19] LABS: Calcium 9.2 MG/DL (8.5-10.1); Osmolality,Calculated 265.2 MOS/KG (273-304); Potassium 4.4 MMOL/L (3.5-5.1)
[2021-07-26] MEDS: LACTULOSE 20 GM/30 ML UDCUP PO SCH (08:54)
[2021-07-26] MEDS: cefTRIAXone 1,000 MG in SODIUM CHLORIDE 0.9% 100 ML IV SCH (08:54)
[2021-07-26] MEDS: POLYETHYLENE GLYCOL POWDER 17 GM PACK PO SCH (08:54)
[2021-07-26] MEDS: MENTHOL/ZINC OXIDE OINT 71 GM JAR TOP SCH (09:01)
[2021-07-26] MEDS: COLLAGENASE OINT 30 GM TUBE TOP SCH (14:59)
[2021-07-26 17:10] VITALS: BP 130/80
== END 2021-07-26 19:52 | disposition home health service (06) | DRG 698 ==
LOC: EDUNIT# → EDBD → N.ED 16:23 → N.EDINP 16:23 → N.5E 22:46 → SUATTDRO 07-23 14:49
PROVIDERS: ADMIT Internal Medicine Geriatric Medicine; ATTEND Internal Medicine

== ENCOUNTER 2021-12-05 13:40 | Inpatient (IN) ==
[2021-12-05 18:14] LABS: Basophils # 0.1 10*3/uL (0.0-0.2); Eosinophils # 0.1 10*3/uL (0.0-0.87); Hematocrit 42.3 VOL% (42.0-52.0); Hemoglobin 13.7 GM/DL (14.0-18.0); Immature Granulocytes % 1.2 %; Immature Granulocytes Absolute 0.13 #; Lymphocytes # 2.6 10*3/uL (1.4-4.0); Lymphocytes % 24.7 % (21.2-54.2); Mean Corpuscular HGB Conc 32.4 GM/DL (32-36); Mean Corpuscular Volume 87.4 FL (87-102); Mean Platelet Volume 8.8 FL (9.6-12.0); Monocytes % 6.1 % (1.7-12.7); Platelet Count 226 T/CUMM (130-400); Red Blood Count 4.84 MC/CUMM (3.8-5.5); Red Cell Distribution Width 14.5 % (9.3-17.3); White Blood Count 10.5 T/CUMM (4-12)
[2021-12-05 18:31] LABS: Albumin 2.7 G/DL (3.4-5.0); Bilirubin,Total 0.9 MG/DL (0.20-1.00); Osmolality,Calculated 258.7 MOS/KG (273-304); Potassium 5.5 MMOL/L (3.5-5.1); Total Protein 8.5 G/DL (6.4-8.2)
[2021-12-05 18:41] LABS: Blood, Urine Small mg/dL (Negative); Glucose,Urine (UA) Negative (Negative); Ketones,Urine Negative (Negative); Mucus,Urine Many /LPF (Occasional); Nitrite,Urine Negative (Negative); Protein,Urine >=500 MG/DL; RBC,Urine 291 /HPF (0-4); Squamous Epithelial Cell,Urine Moderate /HPF (0-10); Urine Appearance CLOUDY (Clear); Urine Color Yellow (Yellow); Urine Specific Gravity 1.016 (1.001-1.035)
[2021-12-05 19:10] LABS: Bilirubin,Urine Moderate mg/dL (Negative)
[2021-12-05] MEDS ORDERED: MEROPENEM 1,000 MG in SODIUM CHLORIDE 0.9% 100 ML IV STA (19:35)
[2021-12-05] MEDS ORDERED: GLUCAGON 1 MG VIAL IM PRN (20:16)
[2021-12-05] MEDS ORDERED: SIMETHICONE CHEW 125 MG TABLET PO PRN (20:16)
[2021-12-05] MEDS ORDERED: tiZANidine 4 MG TABLET PO PRN (20:20)
[2021-12-05] MEDS ORDERED: DEXTROSE 10% 250 ML BAG IV PRN (20:23)
[2021-12-05] MEDS: ENOXAPARIN 40 MG/0.4 ML SYRINGE SUBCUT SCH (22:23)
[2021-12-05] MEDS: SODIUM CHLORIDE 0.9% 1,000 ML IV SCH (22:23)
[2021-12-05] MEDS: QUEtiapine 25 MG TABLET PO SCH (22:24)
[2021-12-05] MEDS: INSULIN REGULAR 100 UNIT/ML SUBCUT SCH (22:24)
[2021-12-05] MEDS: GABAPENTIN 300 MG CAPSULE PO SCH (22:24)
[2021-12-05] MEDS: OXYBUTYNIN XL 15 MG TABLET PO SCH (22:24)
[2021-12-06] MEDS: MEROPENEM 500 MG in SODIUM CHLORIDE 0.9% 100 ML IV SCH ×4 (02:06→22:14)
[2021-12-06 04:06] LABS: Basophils # 0.1 10*3/uL (0.0-0.2); Basophils % 0.8 % (0.0-0.8); Eosinophils # 0.1 10*3/uL (0.0-0.87); Eosinophils % 1.1 % (0.00-10.9); Hematocrit 38.3 VOL% (42.0-52.0); Hemoglobin 12.6 GM/DL (14.0-18.0); Immature Granulocytes % 1.1 %; Immature Granulocytes Absolute 0.11 #; Lymphocytes % 30.8 % (21.2-54.2); Mean Corpuscular HGB Conc 32.9 GM/DL (32-36); Mean Corpuscular Volume 87.6 FL (87-102); Mean Platelet Volume 10.4 FL (9.6-12.0); Monocytes % 7.5 % (1.7-12.7); Neutrophils % 58.7 % (38.7-73.9); Platelet Count 176 T/CUMM (130-400); Red Blood Count 4.37 MC/CUMM (3.8-5.5); Red Cell Distribution Width 14.4 % (9.3-17.3); White Blood Count 9.6 T/CUMM (4-12)
[2021-12-06 04:35] LABS: Eosinophils 1 % (0-10); Hypochromia Slight; Lymphocytes 44 % (20-55); Microcytosis Slight; Platelet Estimate Adequate; Segmented Neutrophils 51 % (50-85); Total Cells Counted 100
[2021-12-06 05:39] LABS: Albumin 2.5 G/DL (3.4-5.0); Bilirubin,Total 0.6 MG/DL (0.20-1.00); Calcium 8.7 MG/DL (8.5-10.1); Osmolality,Calculated 264.4 MOS/KG (273-304); Potassium 4.5 MMOL/L (3.5-5.1); Risk Ratio 3.7; Total Protein 7.6 G/DL (6.4-8.2); VLDL Cholesterol 17.8 MG/DL
[2021-12-06] MEDS: PANTOPRAZOLE 40 MG TABLET PO SCH (09:07)
[2021-12-06] MEDS: POLYETHYLENE GLYCOL POWDER 17 GM PACK PO SCH (09:07)
[2021-12-06] MEDS: ASPIRIN EC 325 MG TABLET PO SCH (09:07)
[2021-12-06] MEDS: GABAPENTIN 300 MG CAPSULE PO SCH ×3 (09:07→22:14)
[2021-12-06] MEDS: INSULIN REGULAR 100 UNIT/ML SUBCUT SCH ×2 (09:09→12:36)
[2021-12-06] MEDS: SODIUM CHLORIDE 0.9% 1,000 ML IV SCH ×2 (09:10→18:04)
[2021-12-06] MEDS: fentaNYL 50 MCG/HR PATCH TRANSDERM SCH (15:01)
[2021-12-06] MEDS: OXYBUTYNIN XL 15 MG TABLET PO SCH (22:13)
[2021-12-06] MEDS: QUEtiapine 25 MG TABLET PO SCH (22:14)
[2021-12-07] MEDS ORDERED: MORPHINE 2 MG/1 ML SYRINGE ONE ×2 (00:49→04:46)
[2021-12-07] MEDS: MORPHINE 2 MG/1 ML SYRINGE IV PRN ×3 (00:53→09:01)
[2021-12-07] MEDS: MEROPENEM 500 MG in SODIUM CHLORIDE 0.9% 100 ML IV SCH ×2 (03:16→08:13)
[2021-12-07 05:37] LABS: Basophils # 0.1 10*3/uL (0.0-0.2); Basophils % 0.9 % (0.0-0.8); Eosinophils # 0.1 10*3/uL (0.0-0.87); Eosinophils % 1.5 % (0.00-10.9); Hematocrit 34.4 VOL% (42.0-52.0); Hemoglobin 11.2 GM/DL (14.0-18.0); Immature Granulocytes % 1.5 %; Lymphocytes # 2.5 10*3/uL (1.4-4.0); Lymphocytes % 37.7 % (21.2-54.2); Mean Corpuscular HGB Conc 32.6 GM/DL (32-36); Mean Corpuscular Volume 88.7 FL (87-102); Mean Platelet Volume 8.8 FL (9.6-12.0); Monocytes % 8.1 % (1.7-12.7); Neutrophils % 50.3 % (38.7-73.9); Platelet Count 149 T/CUMM (130-400); Red Blood Count 3.88 MC/CUMM (3.8-5.5); Red Cell Distribution Width 14.6 % (9.3-17.3); White Blood Count 6.6 T/CUMM (4-12)
[2021-12-07 06:02] LABS: Eosinophils 2 % (0-10); Hypochromia 1+; Lymphocytes 27 % (20-55); Microcytosis 1+; Platelet Estimate Adequate; Segmented Neutrophils 65 % (50-85); Total Cells Counted 100
[2021-12-07 06:08] LABS: Calcium 8.4 MG/DL (8.5-10.1); Free T4 (Free Thyroxine) 1.29 NG/DL (0.76-1.46); Osmolality,Calculated 270.8 MOS/KG (273-304); Potassium 3.9 MMOL/L (3.5-5.1)
[2021-12-07] MEDS: SODIUM CHLORIDE 0.9% 1,000 ML IV SCH ×3 (06:09→21:30)
[2021-12-07] MEDS: POLYETHYLENE GLYCOL POWDER 17 GM PACK PO SCH (08:14)
[2021-12-07] MEDS: PANTOPRAZOLE 40 MG TABLET PO SCH (08:14)
[2021-12-07] MEDS: ASPIRIN EC 325 MG TABLET PO SCH (08:14)
[2021-12-07] MEDS: GABAPENTIN 300 MG CAPSULE PO SCH ×3 (08:14→20:01)
[2021-12-07] MEDS ORDERED: LACTATED RINGERS 1,000 ML IV SCH (11:30)
[2021-12-07] MEDS ORDERED: LIDOCAINE 2% 5 ML VIAL ONE (11:39)
[2021-12-07] MEDS ORDERED: propofoL 200 MG/20 ML VIAL IV ONE (11:39)
[2021-12-07] MEDS ORDERED: ONDANSETRON 4 MG/2 ML VIAL ONE (11:39)
[2021-12-07] MEDS ORDERED: MIDAZOLAM 2 MG/2 ML VIAL ONE (11:39)
[2021-12-07] MEDS ORDERED: fentaNYL 100 MCG/2 ML VIAL ONE (11:39)
[2021-12-07] MEDS ORDERED: ePHEDrine 50 MG/ML VIAL ONE (12:02)
[2021-12-07] MEDS ORDERED: CLINDAMYCIN INJ 900 MG/50 ML PREMIX IV ONE (12:13)
[2021-12-07] MEDS ORDERED: GLYCOPYRROLATE 0.4 MG/2 ML VIAL ONE (12:43)
[2021-12-07] MEDS ORDERED: ESMOLOL 100 MG/10 ML VIAL IV ONE (12:49)
[2021-12-07] MEDS: cefTRIAXone 2,000 MG in SODIUM CHLORIDE 0.9% 100 ML IV SCH (14:36)
[2021-12-07] MEDS: HYDROmorphone 2 MG/1 ML VIAL IV PRN ×3 (16:41→23:48)
[2021-12-07] MEDS: OXYBUTYNIN XL 15 MG TABLET PO SCH (20:01)
[2021-12-07] MEDS: QUEtiapine 25 MG TABLET PO SCH (20:01)
[2021-12-08] MEDS: HYDROmorphone 2 MG/1 ML VIAL IV PRN ×6 (02:04→22:10)
[2021-12-08 06:06] LABS: Basophils # 0.1 10*3/uL (0.0-0.2); Basophils % 0.8 % (0.0-0.8); Eosinophils # 0.1 10*3/uL (0.0-0.87); Eosinophils % 1.2 % (0.00-10.9); Hematocrit 32.1 VOL% (42.0-52.0); Hemoglobin 10.1 GM/DL (14.0-18.0); Immature Granulocytes % 0.8 %; Immature Granulocytes Absolute 0.05 #; Lymphocytes # 1.9 10*3/uL (1.4-4.0); Lymphocytes % 29.4 % (21.2-54.2); Mean Corpuscular HGB Conc 31.5 GM/DL (32-36); Mean Corpuscular Volume 90.9 FL (87-102); Mean Platelet Volume 9.2 FL (9.6-12.0); Monocytes % 10.6 % (1.7-12.7); Neutrophils % 57.2 % (38.7-73.9); Platelet Count 118 T/CUMM (130-400); Red Blood Count 3.53 MC/CUMM (3.8-5.5); Red Cell Distribution Width 14.8 % (9.3-17.3); White Blood Count 6.6 T/CUMM (4-12)
[2021-12-08 06:35] LABS: Calcium 8.3 MG/DL (8.5-10.1); Osmolality,Calculated 273.5 MOS/KG (273-304); Potassium 4.8 MMOL/L (3.5-5.1)
[2021-12-08 06:36] LABS: Eosinophils 2 % (0-10); Lymphocytes 25 % (20-55); Platelet Estimate Normal; Segmented Neutrophils 67 % (50-85); Total Cells Counted 100
[2021-12-08] MEDS: ASPIRIN EC 325 MG TABLET PO SCH (08:05)
[2021-12-08] MEDS: PANTOPRAZOLE 40 MG TABLET PO SCH (08:05)
[2021-12-08] MEDS: GABAPENTIN 300 MG CAPSULE PO SCH ×3 (08:05→20:52)
[2021-12-08] MEDS: POLYETHYLENE GLYCOL POWDER 17 GM PACK PO SCH (08:05)
[2021-12-08] MEDS: ENOXAPARIN 40 MG/0.4 ML SYRINGE SUBCUT SCH ×2 (11:01→19:24)
[2021-12-08] MEDS: cefTRIAXone 2,000 MG in SODIUM CHLORIDE 0.9% 100 ML IV SCH (16:17)
[2021-12-08] MEDS: SODIUM CHLORIDE 0.9% 1,000 ML IV SCH ×2 (20:46→22:21)
[2021-12-08] MEDS: OXYBUTYNIN XL 15 MG TABLET PO SCH (20:51)
[2021-12-08] MEDS: QUEtiapine 25 MG TABLET PO SCH (20:52)
[2021-12-09] MEDS: HYDROmorphone 2 MG/1 ML VIAL IV PRN ×6 (01:13→23:11)
[2021-12-09 06:06] LABS: Basophils # 0.1 10*3/uL (0.0-0.2); Basophils % 0.7 % (0.0-0.8); Eosinophils # 0.1 10*3/uL (0.0-0.87); Eosinophils % 1.1 % (0.00-10.9); Hematocrit 33.5 VOL% (42.0-52.0); Hemoglobin 10.5 GM/DL (14.0-18.0); Immature Granulocytes Absolute 0.08 #; Lymphocytes # 2.1 10*3/uL (1.4-4.0); Lymphocytes % 24.9 % (21.2-54.2); Mean Corpuscular HGB Conc 31.3 GM/DL (32-36); Mean Corpuscular Volume 91.3 FL (87-102); Mean Platelet Volume 9.7 FL (9.6-12.0); Monocytes % 9.5 % (1.7-12.7); Neutrophils % 62.8 % (38.7-73.9); Platelet Count 138 T/CUMM (130-400); Red Blood Count 3.67 MC/CUMM (3.8-5.5); Red Cell Distribution Width 14.8 % (9.3-17.3); White Blood Count 8.4 T/CUMM (4-12)
[2021-12-09 06:35] LABS: Calcium 8.3 MG/DL (8.5-10.1); Potassium 3.9 MMOL/L (3.5-5.1)
[2021-12-09] MEDS: PANTOPRAZOLE 40 MG TABLET PO SCH (10:10)
[2021-12-09] MEDS: GABAPENTIN 300 MG CAPSULE PO SCH ×3 (10:10→21:11)
[2021-12-09] MEDS: fentaNYL 50 MCG/HR PATCH TRANSDERM SCH (10:10)
[2021-12-09] MEDS: ASPIRIN EC 325 MG TABLET PO SCH (10:10)
[2021-12-09] MEDS: ENOXAPARIN 40 MG/0.4 ML SYRINGE SUBCUT SCH (10:11)
[2021-12-09] MEDS: POLYETHYLENE GLYCOL POWDER 17 GM PACK PO SCH (10:11)
[2021-12-09] MEDS: SODIUM CHLORIDE 0.9% 1,000 ML IV SCH ×2 (10:11→17:31)
[2021-12-09] MEDS: cefTRIAXone 2,000 MG in SODIUM CHLORIDE 0.9% 100 ML IV SCH (15:07)
[2021-12-09] MEDS: OXYBUTYNIN XL 15 MG TABLET PO SCH (21:10)
[2021-12-09] MEDS: QUEtiapine 25 MG TABLET PO SCH (21:11)
[2021-12-10] MEDS: HYDROmorphone 2 MG/1 ML VIAL IV PRN ×5 (03:56→20:36)
[2021-12-10] MEDS: SODIUM CHLORIDE 0.9% 1,000 ML IV SCH ×2 (04:03→14:43)
[2021-12-10 05:41] LABS: Basophils % 0.6 % (0.0-0.8); Eosinophils # 0.1 10*3/uL (0.0-0.87); Eosinophils % 1.3 % (0.00-10.9); Hematocrit 31.7 VOL% (42.0-52.0); Hemoglobin 10.1 GM/DL (14.0-18.0); Immature Granulocytes Absolute 0.07 #; Lymphocytes # 2.1 10*3/uL (1.4-4.0); Lymphocytes % 30.4 % (21.2-54.2); Mean Corpuscular HGB Conc 31.9 GM/DL (32-36); Mean Corpuscular Volume 89.8 FL (87-102); Mean Platelet Volume 9.8 FL (9.6-12.0); Monocytes % 11.4 % (1.7-12.7); Neutrophils % 55.3 % (38.7-73.9); Platelet Count 126 T/CUMM (130-400); Red Blood Count 3.53 MC/CUMM (3.8-5.5); Red Cell Distribution Width 14.9 % (9.3-17.3); White Blood Count 6.9 T/CUMM (4-12)
[2021-12-10 05:55] LABS: Calcium 8.4 MG/DL (8.5-10.1); Osmolality,Calculated 269.8 MOS/KG (273-304); Potassium 3.7 MMOL/L (3.5-5.1)
[2021-12-10 06:08] LABS: Lymphocytes 28 % (20-55); Platelet Estimate Normal; Segmented Neutrophils 62 % (50-85); Total Cells Counted 100
[2021-12-10 06:09] LABS: Hypochromia Slight
[2021-12-10] MEDS: PANTOPRAZOLE 40 MG TABLET PO SCH (09:09)
[2021-12-10] MEDS: GABAPENTIN 300 MG CAPSULE PO SCH ×3 (09:09→20:37)
[2021-12-10] MEDS: POLYETHYLENE GLYCOL POWDER 17 GM PACK PO SCH ×2 (09:09→20:38)
[2021-12-10] MEDS: ASPIRIN EC 325 MG TABLET PO SCH (09:10)
[2021-12-10] MEDS: ENOXAPARIN 40 MG/0.4 ML SYRINGE SUBCUT SCH (09:10)
[2021-12-10] MEDS: cefTRIAXone 2,000 MG in SODIUM CHLORIDE 0.9% 100 ML IV SCH (17:06)
[2021-12-10] MEDS: LACTULOSE 20 GM/30 ML UDCUP PO SCH ×2 (17:06→20:43)
[2021-12-10] MEDS: OXYBUTYNIN XL 15 MG TABLET PO SCH (20:37)
[2021-12-10] MEDS: QUEtiapine 25 MG TABLET PO SCH (20:37)
[2021-12-11] MEDS: HYDROmorphone 2 MG/1 ML VIAL IV PRN ×6 (00:01→21:06)
[2021-12-11] MEDS: SODIUM CHLORIDE 0.9% 1,000 ML IV SCH ×3 (00:04→21:08)
[2021-12-11 05:01] LABS: Basophils % 0.6 % (0.0-0.8); Eosinophils # 0.1 10*3/uL (0.0-0.87); Eosinophils % 1.3 % (0.00-10.9); Hematocrit 31.3 VOL% (42.0-52.0); Hemoglobin 9.8 GM/DL (14.0-18.0); Immature Granulocytes % 0.9 %; Immature Granulocytes Absolute 0.06 #; Lymphocytes # 2.1 10*3/uL (1.4-4.0); Lymphocytes % 30.2 % (21.2-54.2); Mean Corpuscular HGB Conc 31.3 GM/DL (32-36); Mean Corpuscular Volume 90.7 FL (87-102); Mean Platelet Volume 9.5 FL (9.6-12.0); Monocytes % 10.2 % (1.7-12.7); Neutrophils % 56.8 % (38.7-73.9); Platelet Count 152 T/CUMM (130-400); Red Blood Count 3.45 MC/CUMM (3.8-5.5); Red Cell Distribution Width 14.7 % (9.3-17.3)
[2021-12-11] MEDS: GABAPENTIN 300 MG CAPSULE PO SCH ×3 (09:14→21:02)
[2021-12-11] MEDS: ASPIRIN EC 325 MG TABLET PO SCH (09:14)
[2021-12-11] MEDS: LACTULOSE 20 GM/30 ML UDCUP PO SCH ×2 (09:14→21:01)
[2021-12-11] MEDS: PANTOPRAZOLE 40 MG TABLET PO SCH (09:14)
[2021-12-11] MEDS: ENOXAPARIN 40 MG/0.4 ML SYRINGE SUBCUT SCH (09:17)
[2021-12-11] MEDS: POLYETHYLENE GLYCOL POWDER 17 GM PACK PO SCH ×2 (09:18→21:02)
[2021-12-11] MEDS: cefTRIAXone 2,000 MG in SODIUM CHLORIDE 0.9% 100 ML IV SCH (15:08)
[2021-12-11] MEDS: MINERAL OIL ENEMA 133 ML BOTTLE RECTAL PRN (17:06)
[2021-12-11] MEDS: QUEtiapine 25 MG TABLET PO SCH (21:02)
[2021-12-11] MEDS: OXYBUTYNIN XL 15 MG TABLET PO SCH (21:02)
[2021-12-12] MEDS: HYDROmorphone 2 MG/1 ML VIAL IV PRN ×5 (00:43→20:35)
[2021-12-12] MEDS ORDERED: ONDANSETRON 4 MG/2 ML VIAL IV PRN (01:55)
[2021-12-12 03:05] LABS: Basophils # 0.1 10*3/uL (0.0-0.2); Basophils % 0.8 % (0.0-0.8); Eosinophils # 0.1 10*3/uL (0.0-0.87); Eosinophils % 1.9 % (0.00-10.9); Hematocrit 30.1 VOL% (42.0-52.0); Hemoglobin 9.7 GM/DL (14.0-18.0); Immature Granulocytes % 0.8 %; Immature Granulocytes Absolute 0.05 #; Lymphocytes % 31.1 % (21.2-54.2); Mean Corpuscular HGB Conc 32.2 GM/DL (32-36); Mean Corpuscular Volume 89.3 FL (87-102); Mean Platelet Volume 9.7 FL (9.6-12.0); Monocytes % 9.2 % (1.7-12.7); Neutrophils % 56.2 % (38.7-73.9); Platelet Count 144 T/CUMM (130-400); Red Blood Count 3.37 MC/CUMM (3.8-5.5); Red Cell Distribution Width 14.6 % (9.3-17.3); White Blood Count 6.3 T/CUMM (4-12)
[2021-12-12 03:34] LABS: Hypochromia 1+; Microcytosis 1+
[2021-12-12 03:35] LABS: Platelet Estimate Adequate; Target Cells Slight
[2021-12-12 03:38] LABS: Calcium 8.1 MG/DL (8.5-10.1); Osmolality,Calculated 271.8 MOS/KG (273-304); Potassium 3.9 MMOL/L (3.5-5.1)
[2021-12-12] MEDS: SODIUM CHLORIDE 0.9% 1,000 ML IV SCH ×2 (06:01→16:13)
[2021-12-12] MEDS: fentaNYL 50 MCG/HR PATCH TRANSDERM SCH (08:25)
[2021-12-12] MEDS: LACTULOSE 20 GM/30 ML UDCUP PO SCH ×2 (09:09→20:37)
[2021-12-12] MEDS: GABAPENTIN 300 MG CAPSULE PO SCH ×3 (09:09→20:37)
[2021-12-12] MEDS: PANTOPRAZOLE 40 MG TABLET PO SCH (09:09)
[2021-12-12] MEDS: POLYETHYLENE GLYCOL POWDER 17 GM PACK PO SCH ×2 (09:09→20:36)
[2021-12-12] MEDS: ENOXAPARIN 40 MG/0.4 ML SYRINGE SUBCUT SCH (09:10)
[2021-12-12] MEDS: ASPIRIN EC 325 MG TABLET PO SCH (09:10)
[2021-12-12] MEDS ORDERED: MAGNESIUM SULF RIDER 2 GM/50 ML PREMIX IV PRN (11:13)
[2021-12-12] MEDS ORDERED: MAGNESIUM SULF RIDER 4 GM/100 ML PREMIX IV PRN (11:13)
[2021-12-12] MEDS: cefTRIAXone 2,000 MG in SODIUM CHLORIDE 0.9% 100 ML IV SCH (16:13)
[2021-12-12] MEDS: METHYLNALTREXONE 12 MG/0.6 ML VIAL SUBCUT SCH (17:01)
[2021-12-12] MEDS: MINERAL OIL ENEMA 133 ML BOTTLE RECTAL PRN (18:09)
[2021-12-12] MEDS: QUEtiapine 25 MG TABLET PO SCH (20:37)
[2021-12-12] MEDS: OXYBUTYNIN XL 15 MG TABLET PO SCH (20:38)
[2021-12-13] MEDS: HYDROmorphone 2 MG/1 ML VIAL IV PRN ×5 (00:33→22:31)
[2021-12-13] MEDS: SODIUM CHLORIDE 0.9% 1,000 ML IV SCH ×2 (03:55→18:38)
[2021-12-13] MEDS ORDERED: SODIUM CHLORIDE 0.9% 500 ML IV ONE (06:26)
[2021-12-13 06:31] LABS: Basophils # 0.1 10*3/uL (0.0-0.2); Basophils % 0.9 % (0.0-0.8); Eosinophils # 0.1 10*3/uL (0.0-0.87); Eosinophils % 2.3 % (0.00-10.9); Hematocrit 27.8 VOL% (42.0-52.0); Hemoglobin 8.8 GM/DL (14.0-18.0); Immature Granulocytes % 0.5 %; Immature Granulocytes Absolute 0.03 #; Lymphocytes % 36.3 % (21.2-54.2); Mean Corpuscular HGB Conc 31.7 GM/DL (32-36); Mean Corpuscular Volume 91.4 FL (87-102); Mean Platelet Volume 10.4 FL (9.6-12.0); Platelet Count 163 T/CUMM (130-400); Red Blood Count 3.04 MC/CUMM (3.8-5.5); Red Cell Distribution Width 14.7 % (9.3-17.3); White Blood Count 5.6 T/CUMM (4-12)
[2021-12-13 06:47] LABS: Calcium 8.7 MG/DL (8.5-10.1); Osmolality,Calculated 269.8 MOS/KG (273-304); Potassium 3.9 MMOL/L (3.5-5.1)
[2021-12-13 06:51] LABS: Hypochromia 1+; Microcytosis 1+; Platelet Estimate Adequate
[2021-12-13] MEDS: METHYLNALTREXONE 12 MG/0.6 ML VIAL SUBCUT SCH (09:57)
[2021-12-13] MEDS: ENOXAPARIN 40 MG/0.4 ML SYRINGE SUBCUT SCH (09:58)
[2021-12-13] MEDS: POLYETHYLENE GLYCOL POWDER 17 GM PACK PO SCH ×2 (09:58→20:46)
[2021-12-13] MEDS: LACTULOSE 20 GM/30 ML UDCUP PO SCH ×2 (09:58→20:46)
[2021-12-13] MEDS: ASPIRIN EC 325 MG TABLET PO SCH (09:58)
[2021-12-13] MEDS: PANTOPRAZOLE 40 MG TABLET PO SCH (09:58)
[2021-12-13] MEDS: GABAPENTIN 300 MG CAPSULE PO SCH ×3 (09:58→20:46)
[2021-12-13] MEDS: OXYBUTYNIN XL 15 MG TABLET PO SCH (20:46)
[2021-12-13] MEDS: QUEtiapine 25 MG TABLET PO SCH (20:46)
[2021-12-13] MEDS: NICOTINE 14 MG/24 HR PATCH TRANSDERM PRN (22:37)
[2021-12-14] MEDS: HYDROmorphone 2 MG/1 ML VIAL IV PRN (02:41)
[2021-12-14 04:22] LABS: Basophils # 0.1 10*3/uL (0.0-0.2); Eosinophils # 0.2 10*3/uL (0.0-0.87); Eosinophils % 2.4 % (0.00-10.9); Hematocrit 31.3 VOL% (42.0-52.0); Hemoglobin 9.7 GM/DL (14.0-18.0); Immature Granulocytes % 1.1 %; Immature Granulocytes Absolute 0.07 #; Lymphocytes % 32.6 % (21.2-54.2); Mean Corpuscular Volume 90.7 FL (87-102); Mean Platelet Volume 9.4 FL (9.6-12.0); Monocytes % 11.4 % (1.7-12.7); Neutrophils % 51.5 % (38.7-73.9); Platelet Count 156 T/CUMM (130-400); Red Blood Count 3.45 MC/CUMM (3.8-5.5); Red Cell Distribution Width 14.6 % (9.3-17.3); White Blood Count 6.1 T/CUMM (4-12)
[2021-12-14 04:38] LABS: Calcium 8.2 MG/DL (8.5-10.1); Osmolality,Calculated 273.5 MOS/KG (273-304); Potassium 4.2 MMOL/L (3.5-5.1)
[2021-12-14 05:03] LABS: Eosinophils 2 % (0-10); Hypochromia 1+; Lymphocytes 35 % (20-55); Microcytosis 1+; Platelet Estimate Adequate; Segmented Neutrophils 53 % (50-85); Total Cells Counted 100
[2021-12-14] MEDS: SODIUM CHLORIDE 0.9% 1,000 ML IV SCH (05:17)
[2021-12-14] MEDS: ASPIRIN EC 325 MG TABLET PO SCH (09:45)
[2021-12-14] MEDS: PANTOPRAZOLE 40 MG TABLET PO SCH (09:46)
[2021-12-14] MEDS: GABAPENTIN 300 MG CAPSULE PO SCH ×3 (09:46→20:52)
[2021-12-14] MEDS: oxyCODONE/ACETAMINOPHEN 5-325 MG TABLET PO PRN ×3 (09:46→22:07)
[2021-12-14] MEDS: POLYETHYLENE GLYCOL POWDER 17 GM PACK PO SCH ×2 (09:47→20:52)
[2021-12-14] MEDS: ENOXAPARIN 40 MG/0.4 ML SYRINGE SUBCUT SCH (09:47)
[2021-12-14] MEDS: LACTULOSE 20 GM/30 ML UDCUP PO SCH ×2 (09:47→20:52)
[2021-12-14] MEDS: METHYLNALTREXONE 12 MG/0.6 ML VIAL SUBCUT SCH (09:47)
[2021-12-14] MEDS ORDERED: SKIN HEALING OINT (AQUAPHOR) 50 GM TUBE TOP PRN (15:11)
[2021-12-14] MEDS: OXYBUTYNIN XL 15 MG TABLET PO SCH (20:52)
[2021-12-14] MEDS: QUEtiapine 25 MG TABLET PO SCH (20:52)
[2021-12-15] MEDS: METHYLNALTREXONE 12 MG/0.6 ML VIAL SUBCUT SCH (09:56)
[2021-12-15] MEDS: LACTULOSE 20 GM/30 ML UDCUP PO SCH (09:57)
[2021-12-15] MEDS: ASPIRIN EC 325 MG TABLET PO SCH (09:57)
[2021-12-15] MEDS: PANTOPRAZOLE 40 MG TABLET PO SCH (09:57)
[2021-12-15] MEDS: GABAPENTIN 300 MG CAPSULE PO SCH (09:57)
[2021-12-15] MEDS: ENOXAPARIN 40 MG/0.4 ML SYRINGE SUBCUT SCH (09:57)
[2021-12-15] MEDS: POLYETHYLENE GLYCOL POWDER 17 GM PACK PO SCH (10:02)
[2021-12-15] MEDS: oxyCODONE/ACETAMINOPHEN 5-325 MG TABLET PO PRN (10:02)
[2021-12-15] MEDS: NICOTINE 14 MG/24 HR PATCH TRANSDERM PRN (10:04)
[2021-12-15] MEDS: fentaNYL 50 MCG/HR PATCH TRANSDERM SCH (10:06)
[2021-12-15 12:21] VITALS: BP 128/68
== END 2021-12-15 12:59 | disposition home health service (06) | DRG 981 ==
LOC: EDBD → EDUNIT# → N.ED 13:40 → N.EDINP 20:16 → SUATTDRO 20:16 → N.5E 12-06 15:59
PROVIDERS: ADMIT Internal Medicine; ATTEND Internal Medicine

== ENCOUNTER 2022-06-28 06:08 | Inpatient (IN) ==
[~2022-06-28 06:08] MED LIST: CLINDAMYCIN INJ 900 MG/50 ML PREMIX IV ONE
[2022-06-28] MEDS ORDERED: ACETAMINOPHEN 500 MG TABLET PO ONE (06:49)
[2022-06-28] MEDS ORDERED: FAMOTIDINE 20 MG TABLET PO ONE (06:49)
[2022-06-28] MEDS ORDERED: DIAZEPAM 5 MG TABLET PO ONE (06:49)
[2022-06-28] MEDS ORDERED: GABAPENTIN 400 MG CAPSULE PO ONE (06:49)
[2022-06-28] MEDS ORDERED: LACTATED RINGERS 1,000 ML IV SCH (07:00)
[2022-06-28 07:03] LABS: Basophils # 0.1 10*3/uL (0.0-0.2); Basophils % 0.8 % (0.0-0.8); Eosinophils # 0.1 10*3/uL (0.0-0.87); Eosinophils % 1.6 % (0.00-10.9); Hematocrit 38.9 VOL% (42.0-52.0); Hemoglobin 12.7 GM/DL (14.0-18.0); Immature Granulocytes % 0.4 %; Immature Granulocytes Absolute 0.03 #; Lymphocytes # 2.9 10*3/uL (1.4-4.0); Lymphocytes % 37.3 % (21.2-54.2); Mean Corpuscular HGB Conc 32.6 GM/DL (32-36); Mean Corpuscular Volume 95.8 FL (87-102); Mean Platelet Volume 9.2 FL (9.6-12.0); Monocytes # 0.6 10*3/uL (0.11-0.8); Monocytes % 8.1 % (1.7-12.7); Neutrophils % 51.8 % (38.7-73.9); Platelet Count 143 T/CUMM (130-400); Red Blood Count 4.06 MC/CUMM (3.8-5.5); Red Cell Distribution Width 14.5 % (9.3-17.3); White Blood Count 7.7 T/CUMM (4-12)
[2022-06-28 07:50] LABS: Albumin 3.3 G/DL (3.4-5.0); Bilirubin,Total 0.4 MG/DL (0.20-1.00); Calcium 9.4 MG/DL (8.5-10.1); Osmolality,Calculated 265.1 MOS/KG (273-304); Potassium 3.9 MMOL/L (3.5-5.1); Total Protein 7.6 G/DL (6.4-8.2)
[2022-06-28] MEDS ORDERED: fentaNYL 100 MCG/2 ML VIAL ONE (08:17)
[2022-06-28] MEDS ORDERED: LIDOCAINE 2% 5 ML VIAL ONE (08:18)
[2022-06-28] MEDS ORDERED: propofoL 200 MG/20 ML VIAL IV ONE (08:18)
[2022-06-28] MEDS ORDERED: DEXAMETHASONE 4 MG/1 ML VIAL ONE (08:18)
[2022-06-28] MEDS ORDERED: MIDAZOLAM 2 MG/2 ML VIAL ONE (08:18)
[2022-06-28] MEDS ORDERED: ROPIVACAINE 0.5% 30 ML VIAL ONE (08:19)
[2022-06-28] MEDS ORDERED: LIDOCAINE 1% 5 ML VIAL ONE (08:19)
[2022-06-28] MEDS ORDERED: SEVOFLURANE 1 UNIT/15 MINUTE INH ONE (10:48)
[2022-06-28] MEDS ORDERED: ePHEDrine 50 MG/ML VIAL ONE (10:49)
[2022-06-28] MEDS ORDERED: ACETAMINOPHEN 325 MG TABLET PO PRN (10:49)
[2022-06-28] MEDS ORDERED: diphenhydrAMINE 50 MG/1 ML VIAL IV PRN (10:56)
[2022-06-28] MEDS ORDERED: PROMETHAZINE INJ 25 MG in SODIUM CHLORIDE 0.9% 50 ML IV PRN (10:56)
[2022-06-28] MEDS ORDERED: ONDANSETRON 4 MG/2 ML VIAL IV PRN (10:56)
[2022-06-28] MEDS: HYDROmorphone 1 MG/1 ML SYRINGE IV PRN ×4 (11:25→12:20)
[2022-06-28] MEDS ORDERED: MEPERIDINE 50 MG/1 ML VIAL ONE (13:53)
[2022-06-28] MEDS: MEPERIDINE 25 MG/1 ML VIAL IV PRN ×2 (13:55→14:05)
[2022-06-29] MEDS: HYDROmorphone 1 MG/1 ML SYRINGE IV PRN ×5 (04:53→22:28)
[2022-06-29 05:17] LABS: Basophils % 0.2 % (0.0-0.8); Eosinophils % 0.1 % (0.00-10.9); Hemoglobin 11.6 GM/DL (14.0-18.0); Immature Granulocytes % 0.6 %; Immature Granulocytes Absolute 0.07 #; Lymphocytes # 1.8 10*3/uL (1.4-4.0); Lymphocytes % 14.6 % (21.2-54.2); Mean Corpuscular HGB Conc 32.2 GM/DL (32-36); Mean Corpuscular Volume 97.8 FL (87-102); Mean Platelet Volume 9.6 FL (9.6-12.0); Monocytes # 0.9 10*3/uL (0.11-0.8); Monocytes % 7.4 % (1.7-12.7); Neutrophils % 77.1 % (38.7-73.9); Platelet Count 151 T/CUMM (130-400); Red Blood Count 3.68 MC/CUMM (3.8-5.5); Red Cell Distribution Width 14.2 % (9.3-17.3); White Blood Count 12.1 T/CUMM (4-12)
[2022-06-29 05:35] LABS: Potassium 5.4 MMOL/L (3.5-5.1)
[2022-06-29] MEDS: PANTOPRAZOLE 40 MG VIAL IV SCH (08:40)
[2022-06-29] MEDS: NICOTINE 21 MG/24 HR PATCH TRANSDERM PRN (08:45)
[2022-06-29] MEDS: ENOXAPARIN 30 MG/0.3 ML SYRINGE SUBCUT SCH (08:45)
[2022-06-29] MEDS: DESITIN 4OZ/NYSTATIN 15 GRAM MIXTURE PASTE TOP SCH (21:00)
[2022-06-30] MEDS: HYDROmorphone 1 MG/1 ML SYRINGE IV PRN ×5 (03:22→22:25)
[2022-06-30] MEDS: ENOXAPARIN 30 MG/0.3 ML SYRINGE SUBCUT SCH (08:32)
[2022-06-30] MEDS: DESITIN 4OZ/NYSTATIN 15 GRAM MIXTURE PASTE TOP SCH ×2 (08:32→22:25)
[2022-06-30] MEDS: PANTOPRAZOLE 40 MG VIAL IV SCH (08:32)
[2022-06-30] MEDS: NICOTINE 21 MG/24 HR PATCH TRANSDERM PRN (08:33)
[2022-06-30 08:35] LABS: Basophils # 0.1 10*3/uL (0.0-0.2); Basophils % 0.5 % (0.0-0.8); Eosinophils # 0.1 10*3/uL (0.0-0.87); Eosinophils % 0.5 % (0.00-10.9); Hematocrit 36.1 VOL% (42.0-52.0); Hemoglobin 11.7 GM/DL (14.0-18.0); Immature Granulocytes % 0.5 %; Immature Granulocytes Absolute 0.05 #; Lymphocytes # 3.3 10*3/uL (1.4-4.0); Lymphocytes % 30.8 % (21.2-54.2); Mean Corpuscular HGB Conc 32.4 GM/DL (32-36); Mean Corpuscular Volume 97.3 FL (87-102); Mean Platelet Volume 9.1 FL (9.6-12.0); Monocytes # 0.8 10*3/uL (0.11-0.8); Monocytes % 7.7 % (1.7-12.7); Platelet Count 130 T/CUMM (130-400); Red Blood Count 3.71 MC/CUMM (3.8-5.5); Red Cell Distribution Width 14.7 % (9.3-17.3); White Blood Count 10.6 T/CUMM (4-12)
[2022-06-30 08:56] LABS: Calcium 8.9 MG/DL (8.5-10.1); Osmolality,Calculated 274.7 MOS/KG (273-304); Potassium 4.1 MMOL/L (3.5-5.1)
[2022-06-30] MEDS: GABAPENTIN 300 MG CAPSULE PO SCH ×3 (09:14→22:24)
[2022-07-01] MEDS: HYDROmorphone 1 MG/1 ML SYRINGE IV PRN ×6 (03:09→22:47)
[2022-07-01] MEDS: GABAPENTIN 300 MG CAPSULE PO SCH ×3 (08:24→20:24)
[2022-07-01] MEDS: ENOXAPARIN 30 MG/0.3 ML SYRINGE SUBCUT SCH (08:24)
[2022-07-01] MEDS: PANTOPRAZOLE 40 MG VIAL IV SCH (08:25)
[2022-07-01] MEDS: DESITIN 4OZ/NYSTATIN 15 GRAM MIXTURE PASTE TOP SCH ×2 (10:19→20:24)
[2022-07-01] MEDS: diphenhydrAMINE CAP 25 MG CAPSULE PO PRN (22:47)
[2022-07-02] MEDS: HYDROmorphone 1 MG/1 ML SYRINGE IV PRN ×6 (02:29→23:19)
[2022-07-02] MEDS: PANTOPRAZOLE 40 MG VIAL IV SCH (08:55)
[2022-07-02] MEDS: ENOXAPARIN 30 MG/0.3 ML SYRINGE SUBCUT SCH (08:56)
[2022-07-02] MEDS: GABAPENTIN 300 MG CAPSULE PO SCH ×3 (08:56→21:32)
[2022-07-02] MEDS: DESITIN 4OZ/NYSTATIN 15 GRAM MIXTURE PASTE TOP SCH ×2 (08:57→21:31)
[2022-07-02] MEDS: NICOTINE 21 MG/24 HR PATCH TRANSDERM PRN (11:30)
[2022-07-02] MEDS: ONDANSETRON 4 MG/2 ML VIAL IV PRN (18:22)
[2022-07-02] MEDS: diphenhydrAMINE CAP 25 MG CAPSULE PO PRN (23:19)
[2022-07-03] MEDS: HYDROmorphone 1 MG/1 ML SYRINGE IV PRN ×5 (04:30→22:02)
[2022-07-03] MEDS: GABAPENTIN 300 MG CAPSULE PO SCH ×3 (08:19→22:02)
[2022-07-03] MEDS: ENOXAPARIN 30 MG/0.3 ML SYRINGE SUBCUT SCH (08:19)
[2022-07-03] MEDS: PANTOPRAZOLE 40 MG VIAL IV SCH (08:19)
[2022-07-03] MEDS: DESITIN 4OZ/NYSTATIN 15 GRAM MIXTURE PASTE TOP SCH ×2 (08:24→22:03)
[2022-07-03] MEDS: diphenhydrAMINE CAP 50 MG CAPSULE PO PRN (22:02)
[2022-07-04] MEDS: HYDROmorphone 1 MG/1 ML SYRINGE IV PRN ×5 (03:07→20:47)
[2022-07-04] MEDS: DESITIN 4OZ/NYSTATIN 15 GRAM MIXTURE PASTE TOP SCH ×2 (08:38→20:47)
[2022-07-04] MEDS: GABAPENTIN 300 MG CAPSULE PO SCH ×3 (08:38→20:47)
[2022-07-04] MEDS: ENOXAPARIN 30 MG/0.3 ML SYRINGE SUBCUT SCH (08:38)
[2022-07-04] MEDS: diphenhydrAMINE CAP 50 MG CAPSULE PO PRN (20:47)
[2022-07-05] MEDS: HYDROmorphone 1 MG/1 ML SYRINGE IV PRN ×6 (00:51→21:34)
[2022-07-05] MEDS: ENOXAPARIN 30 MG/0.3 ML SYRINGE SUBCUT SCH (08:07)
[2022-07-05] MEDS: GABAPENTIN 300 MG CAPSULE PO SCH ×3 (08:07→20:57)
[2022-07-05] MEDS: DESITIN 4OZ/NYSTATIN 15 GRAM MIXTURE PASTE TOP SCH ×2 (08:08→20:57)
[2022-07-05] MEDS: diphenhydrAMINE CAP 50 MG CAPSULE PO PRN (21:40)
[2022-07-06] MEDS: HYDROmorphone 1 MG/1 ML SYRINGE IV PRN ×5 (03:48→21:05)
[2022-07-06] MEDS: ENOXAPARIN 30 MG/0.3 ML SYRINGE SUBCUT SCH (08:22)
[2022-07-06] MEDS: DESITIN 4OZ/NYSTATIN 15 GRAM MIXTURE PASTE TOP SCH ×2 (08:22→21:08)
[2022-07-06] MEDS: GABAPENTIN 300 MG CAPSULE PO SCH ×3 (08:22→20:07)
[2022-07-06] MEDS: diphenhydrAMINE CAP 50 MG CAPSULE PO PRN (21:05)
[2022-07-07] MEDS: HYDROmorphone 1 MG/1 ML SYRINGE IV PRN ×6 (01:04→20:41)
[2022-07-07] MEDS: GABAPENTIN 300 MG CAPSULE PO SCH ×3 (08:47→20:40)
[2022-07-07] MEDS: ENOXAPARIN 30 MG/0.3 ML SYRINGE SUBCUT SCH (08:47)
[2022-07-07] MEDS: DESITIN 4OZ/NYSTATIN 15 GRAM MIXTURE PASTE TOP SCH ×2 (08:49→20:44)
[2022-07-07] MEDS: NICOTINE 21 MG/24 HR PATCH TRANSDERM PRN (18:35)
[2022-07-07] MEDS: diphenhydrAMINE CAP 50 MG CAPSULE PO PRN (20:40)
[2022-07-08] MEDS: HYDROmorphone 1 MG/1 ML SYRINGE IV PRN ×6 (00:45→22:20)
[2022-07-08] MEDS: GABAPENTIN 300 MG CAPSULE PO SCH ×3 (07:59→20:40)
[2022-07-08] MEDS: DESITIN 4OZ/NYSTATIN 15 GRAM MIXTURE PASTE TOP SCH ×2 (07:59→22:20)
[2022-07-08] MEDS: ENOXAPARIN 30 MG/0.3 ML SYRINGE SUBCUT SCH (07:59)
[2022-07-08] MEDS: diphenhydrAMINE CAP 50 MG CAPSULE PO PRN (22:20)
[2022-07-09] MEDS: HYDROmorphone 1 MG/1 ML SYRINGE IV PRN ×4 (03:55→16:33)
[2022-07-09] MEDS: DESITIN 4OZ/NYSTATIN 15 GRAM MIXTURE PASTE TOP SCH ×2 (07:59→21:33)
[2022-07-09] MEDS: GABAPENTIN 300 MG CAPSULE PO SCH ×3 (07:59→21:33)
[2022-07-09] MEDS: ENOXAPARIN 30 MG/0.3 ML SYRINGE SUBCUT SCH (07:59)
[2022-07-09 17:00] LABS: Basophils % 1.2 % (0.0-0.8); Eosinophils % 1.2 % (0.00-10.9); Hematocrit 41.2 VOL% (42.0-52.0); Hemoglobin 12.5 GM/DL (14.0-18.0); Immature Granulocytes % 4.2 %; Immature Granulocytes Absolute 0.14 #; Lymphocytes # 1.7 10*3/uL (1.4-4.0); Lymphocytes % 50.4 % (21.2-54.2); Mean Corpuscular HGB Conc 30.3 GM/DL (32-36); Mean Corpuscular Volume 102.5 FL (87-102); Mean Platelet Volume 9.6 FL (9.6-12.0); Monocytes % 0.9 % (1.7-12.7); Neutrophils % 42.1 % (38.7-73.9); Platelet Count 248 T/CUMM (130-400); Red Blood Count 4.02 MC/CUMM (3.8-5.5); Red Cell Distribution Width 14.6 % (9.3-17.3); White Blood Count 3.4 T/CUMM (4-12)
[2022-07-09 17:23] LABS: Alanine Aminotransferase 35 U/L (16-61); Albumin 3.2 G/DL (3.4-5.0); Alkaline Phosphatase 156 U/L (45-117); Aspartate Amino Transferase 28 U/L (0-37); Bilirubin,Total < 0.39 MG/DL (0.20-1.00); Blood Urea Nitrogen 15 MG/DL (7-18); Calcium 10.1 MG/DL (8.5-10.1); Carbon Dioxide 27 MMOL/L (21-32); Chloride 101 MMOL/L (98-107); Glucose 84 MG/DL (74-106); Osmolality,Calculated 269.1 MOS/KG (273-304); Potassium 4.7 MMOL/L (3.5-5.1); Sodium 135 MMOL/L (136-145); Total Protein 8.9 G/DL (6.4-8.2)
[2022-07-09] MEDS ORDERED: SODIUM CHLORIDE 0.9% 1,000 ML IV ONE (18:00)
[2022-07-09] MEDS ORDERED: PHENYLEPHRINE DRIP 40 MG/250 ML PREMIX IV ONE (18:03)
[2022-07-09] MEDS: PHENYLEPHRINE DRIP 40 MG/250 ML PREMIX IV PRN ×3 (18:15→23:20)
[2022-07-09 18:55] LABS: Basophils % 0.3 % (0.0-0.8); Hemoglobin 10.8 GM/DL (14.0-18.0); Immature Granulocytes % 1.1 %; Immature Granulocytes Absolute 0.04 #; Lymphocytes # 0.3 10*3/uL (1.4-4.0); Lymphocytes % 7.5 % (21.2-54.2); Mean Corpuscular HGB Conc 31.8 GM/DL (32-36); Mean Platelet Volume 8.5 FL (9.6-12.0); Monocytes % 0.6 % (1.7-12.7); Neutrophils % 90.5 % (38.7-73.9); Platelet Count 196 T/CUMM (130-400); Red Blood Count 3.47 MC/CUMM (3.8-5.5); Red Cell Distribution Width 14.7 % (9.3-17.3); White Blood Count 3.6 T/CUMM (4-12)
[2022-07-09 18:56] LABS: ABG Base Excess -0.5 MMOL/L (-2.5-2.5); ABG HCO3 23.9 MMOL/L (20-26); ABG Oxygen Saturation 95.8 % (95-100); ABG PCO2 44.1 MM HG (35-48); ABG PH 7.362 (7.35-7.45); ABG TCO2 22.5 MMOL/L (23-27)
[2022-07-09] MEDS ORDERED: MEROPENEM 2,000 MG in SODIUM CHLORIDE 0.9% 100 ML IV SCH (19:00)
[2022-07-09] MEDS ORDERED: ACETAMINOPHEN 650 MG SUPP RECTAL PRN (19:19)
[2022-07-09 19:39] LABS: Alanine Aminotransferase 48 U/L (16-61); Albumin 2.4 G/DL (3.4-5.0); Alkaline Phosphatase 186 U/L (45-117); Aspartate Amino Transferase 71 U/L (0-37); Bilirubin,Total < 0.39 MG/DL (0.20-1.00); Blood Urea Nitrogen 21 MG/DL (7-18); Calcium 8.6 MG/DL (8.5-10.1); Carbon Dioxide 23 MMOL/L (21-32); Chloride 106 MMOL/L (98-107); Glucose 99 MG/DL (74-106); Osmolality,Calculated 275.8 MOS/KG (273-304); Potassium 4.2 MMOL/L (3.5-5.1); Sodium 137 MMOL/L (136-145); Total Protein 6.4 G/DL (6.4-8.2)
[2022-07-09 19:46] LABS: Urine Appearance Cloudy (Clear); Urine Color Dark Yellow (Yellow)
[2022-07-09 19:47] LABS: Glucose,Urine (UA) Negative (Negative); Ketones,Urine Trace mg/dL (Negative); Nitrite,Urine Negative (Negative); Protein,Urine 100 mg/dL (Negative); Urine Specific Gravity <= 1.005 (1.001-1.035)
[2022-07-09 19:48] LABS: Bilirubin,Urine Small mg/dL (Negative); Blood, Urine Large mg/dL (Negative); Urine Urobilinogen 0.2 eU/dL (<2.0)
[2022-07-09 19:54] LABS: Bacteria,Urine Moderate /HPF (Few); RBC,Urine 369 /HPF (0-4)
[2022-07-09] MEDS ORDERED: LEVOFLOXACIN INJ 750 MG/150 ML PREMIX IV SCH (20:00)
[2022-07-09] MEDS ORDERED: LACTATED RINGERS 1,000 ML IV ONE (20:28)
[2022-07-09] MEDS: MEROPENEM 500 MG in SODIUM CHLORIDE 0.9% 100 ML IV SCH (21:00)
[2022-07-10] MEDS: PHENYLEPHRINE DRIP 40 MG/250 ML PREMIX IV PRN ×2 (01:07→02:51)
[2022-07-10] MEDS: MEROPENEM 500 MG in SODIUM CHLORIDE 0.9% 100 ML IV SCH ×4 (01:15→19:23)
[2022-07-10 04:01] LABS: Basophils # 0.1 10*3/uL (0.0-0.2); Basophils % 0.3 % (0.0-0.8); Eosinophils # 0.2 10*3/uL (0.0-0.87); Eosinophils % 0.7 % (0.00-10.9); Hematocrit 32.4 VOL% (42.0-52.0); Hemoglobin 10.4 GM/DL (14.0-18.0); Immature Granulocytes % 1.1 %; Immature Granulocytes Absolute 0.34 #; Lymphocytes # 0.6 10*3/uL (1.4-4.0); Mean Corpuscular HGB Conc 32.1 GM/DL (32-36); Mean Corpuscular Volume 98.2 FL (87-102); Monocytes # 1.5 10*3/uL (0.11-0.8); Monocytes % 4.9 % (1.7-12.7); NRBC # 0.02 10*3/uL; Platelet Count 264 T/CUMM (130-400); Red Cell Distribution Width 14.9 % (9.3-17.3)
[2022-07-10 04:07] LABS: White Blood Count 31.3 T/CUMM (4-12)
[2022-07-10 04:15] LABS: Calcium 7.6 MG/DL (8.5-10.1); Osmolality,Calculated 276.8 MOS/KG (273-304); Potassium 3.5 MMOL/L (3.5-5.1)
[2022-07-10] MEDS: PHENYLEPHRINE INJ 160 MG in SODIUM CHLORIDE 0.9% 234 ML IV PRN ×3 (04:20→16:36)
[2022-07-10] MEDS ORDERED: MAGNESIUM SULF RIDER 4 GM/100 ML PREMIX IV PRN ×2 (04:21→09:09)
[2022-07-10] MEDS ORDERED: MAGNESIUM SULF RIDER 2 GM/50 ML PREMIX IV PRN ×2 (04:21→09:09)
[2022-07-10 04:22] LABS: Band Neutrophils 14 % (0-10); Lymphocytes 2 % (20-55); Total Cells Counted 100
[2022-07-10 04:23] LABS: Macrocytosis Slight; Platelet Estimate Normal; Polychromasia Slight
[2022-07-10] MEDS: POTASSIUM CHLORIDE RIDER 10 MEQ/100 ML PREMIX IV PRN ×3 (05:26→07:20)
[2022-07-10] MEDS: HYDROmorphone 1 MG/1 ML SYRINGE IV PRN ×4 (09:07→21:19)
[2022-07-10] MEDS ORDERED: LACTATED RINGERS 1,000 ML IV ONE (09:16)
[2022-07-10] MEDS: ENOXAPARIN 30 MG/0.3 ML SYRINGE SUBCUT SCH (09:47)
[2022-07-10] MEDS: DESITIN 4OZ/NYSTATIN 15 GRAM MIXTURE PASTE TOP SCH ×2 (09:47→22:22)
[2022-07-10] MEDS: GABAPENTIN 300 MG CAPSULE PO SCH ×3 (09:47→20:04)
[2022-07-10] MEDS: LACTATED RINGERS 1,000 ML IV SCH ×2 (11:03→19:25)
[2022-07-10] MEDS: NICOTINE 21 MG/24 HR PATCH TRANSDERM PRN (20:48)
[2022-07-10] MEDS ORDERED: ZALEPLON 5 MG CAPSULE PO PRN (21:55)
[2022-07-11] MEDS: MEROPENEM 500 MG in SODIUM CHLORIDE 0.9% 100 ML IV SCH ×4 (01:40→20:39)
[2022-07-11 02:40] LABS: Basophils # 0.1 10*3/uL (0.0-0.2); Basophils % 0.3 % (0.0-0.8); Eosinophils # 0.1 10*3/uL (0.0-0.87); Eosinophils % 0.2 % (0.00-10.9); Hematocrit 28.8 VOL% (42.0-52.0); Immature Granulocytes % 2.7 %; Immature Granulocytes Absolute 0.71 #; Lymphocytes # 1.7 10*3/uL (1.4-4.0); Lymphocytes % 6.4 % (21.2-54.2); Mean Corpuscular HGB Conc 31.3 GM/DL (32-36); Mean Corpuscular Volume 98.6 FL (87-102); Mean Platelet Volume 9.4 FL (9.6-12.0); Monocytes # 1.9 10*3/uL (0.11-0.8); Monocytes % 7.2 % (1.7-12.7); Neutrophils % 83.2 % (38.7-73.9); Platelet Count 151 T/CUMM (130-400); Red Blood Count 2.92 MC/CUMM (3.8-5.5); Red Cell Distribution Width 15.2 % (9.3-17.3); White Blood Count 25.9 T/CUMM (4-12)
[2022-07-11 03:03] LABS: Band Neutrophils 4 % (0-10); Lymphocytes 7 % (20-55); Platelet Estimate Adequate; Total Cells Counted 100
[2022-07-11 03:05] LABS: Calcium 7.9 MG/DL (8.5-10.1); Osmolality,Calculated 280.3 MOS/KG (273-304); Potassium 3.9 MMOL/L (3.5-5.1)
[2022-07-11 03:15] LABS: Free T4 (Free Thyroxine) 0.89 NG/DL (0.76-1.46); Thyroid Stimulating Hormone 12.2 uIU/ml (0.358-3.74)
[2022-07-11] MEDS: LACTATED RINGERS 1,000 ML IV SCH ×2 (04:16→09:34)
[2022-07-11] MEDS: HYDROmorphone 1 MG/1 ML SYRINGE IV PRN ×3 (04:17→18:02)
[2022-07-11] MEDS: PHENYLEPHRINE INJ 160 MG in SODIUM CHLORIDE 0.9% 234 ML IV PRN (05:15)
[2022-07-11] MEDS: ENOXAPARIN 30 MG/0.3 ML SYRINGE SUBCUT SCH (08:11)
[2022-07-11] MEDS: GABAPENTIN 300 MG CAPSULE PO SCH ×3 (08:11→20:39)
[2022-07-11] MEDS: PANTOPRAZOLE 40 MG TABLET PO SCH (08:12)
[2022-07-11] MEDS: DESITIN 4OZ/NYSTATIN 15 GRAM MIXTURE PASTE TOP SCH ×2 (08:12→20:47)
[2022-07-11] MEDS: POTASSIUM CHLORIDE RIDER 10 MEQ/100 ML PREMIX IV PRN (16:15)
[2022-07-12] MEDS: MEROPENEM 500 MG in SODIUM CHLORIDE 0.9% 100 ML IV SCH ×4 (01:01→20:17)
[2022-07-12] MEDS: NICOTINE 21 MG/24 HR PATCH TRANSDERM PRN (01:18)
[2022-07-12 03:20] LABS: Basophils # 0.1 10*3/uL (0.0-0.2); Basophils % 0.4 % (0.0-0.8); Eosinophils # 0.1 10*3/uL (0.0-0.87); Eosinophils % 0.9 % (0.00-10.9); Hematocrit 25.9 VOL% (42.0-52.0); Hemoglobin 8.3 GM/DL (14.0-18.0); Immature Granulocytes % 2.6 %; Immature Granulocytes Absolute 0.32 #; Lymphocytes # 1.7 10*3/uL (1.4-4.0); Lymphocytes % 13.8 % (21.2-54.2); Mean Corpuscular Volume 98.1 FL (87-102); Mean Platelet Volume 9.3 FL (9.6-12.0); Monocytes # 0.6 10*3/uL (0.11-0.8); Monocytes % 5.2 % (1.7-12.7); Neutrophils % 77.1 % (38.7-73.9); Platelet Count 130 T/CUMM (130-400); Red Blood Count 2.64 MC/CUMM (3.8-5.5); Red Cell Distribution Width 15.2 % (9.3-17.3); White Blood Count 12.2 T/CUMM (4-12)
[2022-07-12 03:39] LABS: Calcium 7.8 MG/DL (8.5-10.1); Osmolality,Calculated 282.1 MOS/KG (273-304); Potassium 4.3 MMOL/L (3.5-5.1)
[2022-07-12] MEDS: LEVOTHYROXINE 50 MCG TABLET PO SCH (06:19)
[2022-07-12] MEDS: PANTOPRAZOLE 40 MG TABLET PO SCH (08:31)
[2022-07-12] MEDS: GABAPENTIN 300 MG CAPSULE PO SCH ×3 (08:31→20:17)
[2022-07-12] MEDS: ENOXAPARIN 30 MG/0.3 ML SYRINGE SUBCUT SCH (08:31)
[2022-07-12] MEDS: DESITIN 4OZ/NYSTATIN 15 GRAM MIXTURE PASTE TOP SCH ×2 (08:31→23:18)
[2022-07-12] MEDS: HYDROmorphone 1 MG/1 ML SYRINGE IV PRN ×2 (13:23→17:40)
[2022-07-12] MEDS: ONDANSETRON 4 MG/2 ML VIAL IV PRN (18:35)
[2022-07-13] MEDS: MEROPENEM 500 MG in SODIUM CHLORIDE 0.9% 100 ML IV SCH ×2 (01:49→07:25)
[2022-07-13] MEDS: HYDROmorphone 1 MG/1 ML SYRINGE IV PRN ×5 (01:53→20:06)
[2022-07-13] MEDS: LEVOTHYROXINE 50 MCG TABLET PO SCH (05:36)
[2022-07-13 05:44] LABS: Basophils # 0.1 10*3/uL (0.0-0.2); Basophils % 0.7 % (0.0-0.8); Eosinophils # 0.2 10*3/uL (0.0-0.87); Eosinophils % 2.2 % (0.00-10.9); Hematocrit 27.9 VOL% (42.0-52.0); Hemoglobin 8.6 GM/DL (14.0-18.0); Immature Granulocytes Absolute 0.37 #; Lymphocytes # 1.7 10*3/uL (1.4-4.0); Mean Corpuscular HGB Conc 30.8 GM/DL (32-36); Mean Corpuscular Volume 99.6 FL (87-102); Mean Platelet Volume 9.6 FL (9.6-12.0); Monocytes # 0.5 10*3/uL (0.11-0.8); Monocytes % 6.9 % (1.7-12.7); Neutrophils % 62.2 % (38.7-73.9); Platelet Count 131 T/CUMM (130-400); Red Cell Distribution Width 14.9 % (9.3-17.3); White Blood Count 7.4 T/CUMM (4-12)
[2022-07-13 05:55] LABS: Calcium 8.5 MG/DL (8.5-10.1); Osmolality,Calculated 277.3 MOS/KG (273-304); Potassium 4.4 MMOL/L (3.5-5.1)
[2022-07-13] MEDS: DESITIN 4OZ/NYSTATIN 15 GRAM MIXTURE PASTE TOP SCH ×2 (08:45→20:08)
[2022-07-13] MEDS: GABAPENTIN 300 MG CAPSULE PO SCH ×3 (08:45→20:06)
[2022-07-13] MEDS: PANTOPRAZOLE 40 MG TABLET PO SCH (08:45)
[2022-07-13] MEDS: ENOXAPARIN 30 MG/0.3 ML SYRINGE SUBCUT SCH (08:45)
[2022-07-13] MEDS: cefTRIAXone 2,000 MG in SODIUM CHLORIDE 0.9% 100 ML IV SCH (10:01)
[2022-07-13] MEDS: diphenhydrAMINE CAP 50 MG CAPSULE PO PRN (23:29)
[2022-07-14] MEDS: HYDROmorphone 1 MG/1 ML SYRINGE IV PRN (05:30)
[2022-07-14] MEDS: LEVOTHYROXINE 50 MCG TABLET PO SCH (05:34)
[2022-07-14 05:48] LABS: Basophils # 0.1 10*3/uL (0.0-0.2); Basophils % 1.4 % (0.0-0.8); Eosinophils # 0.1 10*3/uL (0.0-0.87); Hematocrit 30.8 VOL% (42.0-52.0); Hemoglobin 9.8 GM/DL (14.0-18.0); Immature Granulocytes % 7.4 %; Immature Granulocytes Absolute 0.44 #; Lymphocytes # 1.9 10*3/uL (1.4-4.0); Lymphocytes % 31.4 % (21.2-54.2); Mean Corpuscular HGB Conc 31.8 GM/DL (32-36); Mean Corpuscular Volume 96.9 FL (87-102); Mean Platelet Volume 9.1 FL (9.6-12.0); Monocytes # 0.5 10*3/uL (0.11-0.8); Neutrophils % 48.8 % (38.7-73.9); Platelet Count 161 T/CUMM (130-400); Red Blood Count 3.18 MC/CUMM (3.8-5.5); Red Cell Distribution Width 14.7 % (9.3-17.3); White Blood Count 5.9 T/CUMM (4-12)
[2022-07-14 06:02] LABS: Calcium 9.4 MG/DL (8.5-10.1); Osmolality,Calculated 274.5 MOS/KG (273-304); Potassium 4.2 MMOL/L (3.5-5.1)
[2022-07-14 06:15] LABS: Eosinophils 5 % (0-10); Lymphocytes 43 % (20-55); Platelet Estimate Normal; Total Cells Counted 100
[2022-07-14] MEDS ORDERED: ZINC GLUCONATE 50 MG TABLET PO SCH (09:00)
[2022-07-14] MEDS ORDERED: CYANOCOBALAMIN 500 MCG TABLET PO SCH (09:00)
[2022-07-14] MEDS ORDERED: PYRIDOXINE 50 MG TABLET PO SCH (09:00)
[2022-07-14] MEDS: cefTRIAXone 2,000 MG in SODIUM CHLORIDE 0.9% 100 ML IV SCH (09:11)
[2022-07-14] MEDS: ENOXAPARIN 30 MG/0.3 ML SYRINGE SUBCUT SCH (09:12)
[2022-07-14] MEDS: GABAPENTIN 300 MG CAPSULE PO SCH ×2 (09:12→14:10)
[2022-07-14] MEDS: PANTOPRAZOLE 40 MG TABLET PO SCH (09:12)
[2022-07-14] MEDS: DESITIN 4OZ/NYSTATIN 15 GRAM MIXTURE PASTE TOP SCH (09:13)
[2022-07-14 11:19] VITALS: BP 133/78
== END 2022-07-14 17:22 | disposition home health service (06) | DRG 239 ==
LOC: N.SDSINP 06:08 → N.5E 14:39 → N.ICU 07-09 17:49 → N.3E 07-13 01:31
PROVIDERS: ADMIT Student in an Organized Health Care Education/Training Program; ATTEND Student in an Organized Health Care Education/Training Program